=== PATIENT | female | born 1990 | race Caucasian/White ===

== ENCOUNTER 2018-03-19 09:16 | Emergency (ER) | payer OTHER, BC ==
[2018-03-19] MEDS ORDERED: HYDROmorphone 1 MG/ML Syringe IVPUSH ONE (09:30)
[2018-03-19] MEDS ORDERED: Ondansetron 4 MG/2 ML SDV IVPUSH ONE (09:31)
[2018-03-19] MEDS ORDERED: Sodium Chloride 0.9% 500 ML IV ONE (09:34)
[2018-03-19] MEDS ORDERED: Iopamidol 612 MG/ML 150 ML Bottle IVPUSH ONE (09:36)
[2018-03-19] MEDS ORDERED: Sodium Chloride 0.9% 10 ML Syringe FLUSH PRN (09:36)
[2018-03-19] MEDS ORDERED: Sodium Chloride 0.9% 100 ML IV SCH (09:45)
[2018-03-19] MEDS: Sodium Chloride 0.9% 10 ML Syringe FLUSH PRN ×2 (09:54→10:35)
--- NOTE | 2018-03-19 10:35 | CR ---
Chest: Portable view of the chest was obtained. Comparison: Prior chest x-ray of 01/28/[address] of 01/29/18. Heart size and mediastinum are normal. Lungs are clear. Bony structures appear grossly intact. Impression: 1. Nothing acute is seen on portable chest x-ray. Diagnostic code #1
--- NOTE | 2018-03-19 11:07 | CT ---
CT cervical spine Technique: Multiple axial sections were obtained from above C1 inferiorly to the top of T2. Reconstructed sagittal and coronal images were reviewed. Comparison: No prior cervical spine imaging. Findings: Incomplete arch of C1 is seen which is a normal variant. Disc space narrowing is noted at C2-C3 which is developmental. Other disc spaces and vertebral body heights are maintained. No fracture is seen. No bony central or bony neural foraminal stenosis is seen. No abnormal subluxation is seen. Impression: 1. Incidental developmental findings as noted above. 2. Nothing acute is seen on CT study of the cervical spine. Diagnostic code #2
--- NOTE | 2018-03-19 11:07 | CT ---
Head CT Technique: Multiple axial sections through the brain were obtained. Intravenous contrast was not utilized. Comparison: Prior head CT study of 01/15/18. Findings: Ventricles along with basal cisterns and sulci over the convexities are within normal limits for the patient's age. No abnormal parenchymal densities are seen. No evidence of intracranial hemorrhage. No midline shift or mass effect is seen. Visualized sinuses are clear. No acute calvarial abnormality is identified. Impression: 1. Nothing acute is appreciated on noncontrast head CT study. No significant change is seen from previous head CT exam. Diagnostic code #1
--- NOTE | 2018-03-19 11:34 | CT ---
CT chest Technique: Multiple axial sections were obtained from above the lung apices inferiorly through the lung bases. Intravenous contrast was utilized. Comparison: Prior chest CT performed as a pulmonary angiogram dated 01/29/18. Findings: Opacified great vessels are felt to be within normal limits. Pulsation artifact is noted within the ascending aorta. No pericardial thickening is seen. No mediastinal mass or adenopathy is noted. Lungs are clear. No pulmonary contusion is seen. No pleural effusions or pneumothorax is seen. Bone window settings were reviewed which show no discrete acute osseous abnormality. Impression: 1. Nothing acute is seen on CT study of the chest. Diagnostic code #1 CT abdomen and pelvis Technique: Multiple axial sections were obtained from above the dome of the diaphragm inferiorly through the pubic symphysis. Intravenous contrast was utilized. No oral contrast has been given. Comparison: Upper abdomen is compared to previous CT chest of 01/29/18. Findings: Cyst is identified within the right lobe of the liver measuring 2.4 cm in size which is felt to be stable from previous exam. Liver is otherwise unremarkable. Spleen appears within normal limits. Adrenal glands appear unremarkable. Kidneys show symmetric contrast enhancement without hydronephrosis or mass. Pancreas is within normal limits. Aorta shows no aneurysm. No retroperitoneal adenopathy is seen. Small physiologic cyst is seen within the left ovary. No pelvic mass or adenopathy is seen. No free fluid or inflammatory change is seen. Bone window settings were reviewed which show no acute osseous abnormality. Impression: 1. Nothing acute is appreciated on CT study of the abdomen and pelvis. 2. Incidental liver cyst is noted. Diagnostic code #2
[2018-03-19] MEDS ORDERED: Ketorolac 30 MG/ML SDV IVPUSH SCH (12:00)
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
--- NOTE | 2018-03-19 12:51 | CR ---
Right wrist: Four views of the right wrist were obtained. Comparison: No prior wrist exam. No fracture, dislocation or other bony abnormality is seen. Impression: 1. No abnormality is identified on right wrist exam. Diagnostic code #1
== END 2018-03-19 12:51 | disposition home or self-care (01) ==
LOC: JD.ED 09:16
DX: S06.0X0A Concussion without loss of consciousness, initial encounter (principal); S00.03XA Contusion of scalp, initial encounter; F41.9 Anxiety disorder, unspecified; Z87.891 Personal history of nicotine dependence; Z79.899 Other long term (current) drug therapy; Z88.1 Allergy status to other antibiotic agents; Z88.0 Allergy status to penicillin; Z91.09 Other allergy status, other than to drugs and biological substances; V49.9XXA Car occupant (driver) (passenger) injured in unspecified traffic accident, initial encounter; Y92.411 Interstate highway as the place of occurrence of the external cause
CPT/HCPCS: 36415; 70450; 71045; 71260; 72125; 73110; 74177; 80053; 84703; 85025; 96361; 96374; 96375; 99285; J1170; J1885; J2405; J7040; Q9967

== ENCOUNTER 2018-04-03 12:56 | Emergency (ER) | payer BC, OTHER ==
[2018-04-03] MEDS ORDERED: Sodium Chloride 0.9% 10 ML Syringe FLUSH PRN ×2 (13:38→14:20)
[2018-04-03] MEDS ORDERED: HYDROmorphone 1 MG/ML Syringe IVPUSH ONE ×2 (13:41→14:41)
[2018-04-03] MEDS ORDERED: Ondansetron 4 MG/2 ML SDV IVPUSH ONE (13:41)
[2018-04-03] MEDS ORDERED: Sodium Chloride 0.9% 1,000 ML IV SCH (13:45)
[2018-04-03] MEDS ORDERED: Iopamidol 612 MG/ML 100 ML Bottle IVPUSH ONE (14:20)
--- NOTE | 2018-04-03 15:34 | CT ---
CT abdomen and pelvis Technique: Multiple axial sections were obtained from above the dome of the diaphragm inferiorly through the pubic symphysis. Intravenous and oral contrast was utilized. Delayed images were obtained through the bladder. Comparison: Prior CT abdomen and pelvis exam of 03/19/18. Findings: Small portion of the visualized lung bases shows nothing acute. Low-density finding is noted within the posterior right lobe of the liver which is felt compatible with a cyst measuring approximately 2.6 cm. This is felt to be similar to recent CT exam. Liver is otherwise unremarkable. Spleen appears within normal limits. Adrenal glands show no nodule. Kidneys show symmetric contrast enhancement without hydronephrosis or mass. Gallbladder contains no calcified gallstones. Pancreas is within normal limits. Aorta shows no aneurysm. No retroperitoneal adenopathy or mesenteric abnormalities are noted. No colonic diverticuli are seen. Appendix is seen which is normal in size. No free fluid or inflammatory change is appreciated. Bone window settings were reviewed which appear within normal limits for the patient's age. Delayed images shows contrast within the distal ureters and within the bladder. Impression: 1. Stable liver cyst. 2. CT study of the abdomen and pelvis is otherwise unremarkable. Nothing acute is appreciated. Diagnostic code #2
--- NOTE | 2018-04-03 15:58 | EDM.PDOC ---
ED HPI GENERAL MEDICAL PROBLEM - General Chief Complaint: Gastrointestinal Problem Stated Complaint: ABD PAIN AND DIARRHEA Time Seen by Provider: 04/03/18 13:15 Source of Information: Reports: Patient History Limitations: Reports: No Limitations - History of Present Illness INITIAL COMMENTS - FREE TEXT/NARRATIVE: The patient presents with left lower abdominal pain, nausea and diarrhea. The patient says about 6 days ago she started her period. She had bleeding for 4 days and then stopped. This usually lasts longer. About the same time she developed diarrhea and abdominal pain. She has nausea but no vomiting. She has no dysuria. She does not think she is . She has a history of endometriosis. She still has her gallbladder and appendix. Onset: Gradual Duration: Day(s): (6) Location: Reports: Abdomen Quality: Reports: Burning Severity: Severe Improves with: Reports: None Worsens with: Reports: None Associated Symptoms: Reports: Nausea/Vomiting. 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 Left Lower Abdominal Pain Score (Numeric/FACES): 8 - Related Data Allergies Allergy/AdvReac Type Severity Reaction Status Date / Time adhesive Allergy Hives Verified 04/03/18 13:08 clarithromycin Allergy Hives Verified 04/03/18 13:08 Penicillins Allergy Airway Verified 04/03/18 13:08 Tightness Home Meds: Home Meds Topiramate 50 mg PO DAILY 10/20/17 [History] Albuterol Sulfate [Proair Hfa] 1 puff INH Q4HR PRN 03/19/18 [History] Apixaban [Eliquis] 2.5 mg PO BID 03/19/18 [History] Ergocalciferol (Vitamin D2) [Vitamin D2] 1 tab PO WEEKLY 03/19/18 [History] FLUoxetine HCl [Prozac] 80 mg PO DAILY 03/19/18 [History] LORazepam [Ativan] 0.5 mg PO TID PRN 03/19/18 [History] Maxalt 03/19/18 [History] Hydrocodone/Acetaminophen [Hydrocodon-Acetaminophen 5-325] 1 - 2 each PO Q6HR PRN #20 tablet 04/03/18 [Rx] Ondansetron [Zofran ODT] 4 mg PO Q6H PRN #20 tab.dis 04/03/18 [Rx] Orphenadrine [Norflex] 100 mg PO DAILY 04/03/18 [History] Past Medical History Cardiovascular History: Reports: Blood Clots/VTE/DVT Other Cardiovascular History: DVT, right heart damage Respiratory History: Reports: PE Other Respiratory History: PE with bilateral saddle bags 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: Endometriosis, Polycystic Ovaries Neurological History: Reports: Migraines Psychiatric History: Reports: Anxiety Endocrine/Metabolic History: Reports: Obesity/BMI 30+ Hematologic History: Reports: Anticoagulation Therapy - Past Surgical History HEENT Surgical History: Reports: Oral Surgery Cardiovascular Surgical History: Reports: Other (See Below), Vascular Surgery Other Cardiovascular Surgeries/Procedures: IVC filter in groin taken out friday03/13/18 Musculoskeletal Surgical History: Reports: Other (See Below) Social & Family History - Tobacco Use Smoking Status *Q: Former Smoker Used Tobacco, but Quit: Yes Month/Year Tobacco Last Used: 2017 Second Hand Smoke Exposure: No - Caffeine Use Caffeine Use: Reports: Coffee - Recreational Drug Use Recreational Drug Use: No - Living Situation & Occupation Living situation: Reports: , with Significant Other (Boyfriend + his son ) 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 Denies: Vomiting : Reports: No Symptoms Musculoskeletal: Reports: No Symptoms ED EXAM, GI/ABD - Physical Exam Exam: See Below Exam Limited By: No Limitations General Appearance: Alert, No Apparent Distress Ears: Normal External Exam Nose: Normal Inspection Head: Atraumatic, Normocephalic Neck: Normal Inspection Respiratory/Chest: No Respiratory Distress, Lungs Clear, Normal Breath Sounds Cardiovascular: Regular Rate, Rhythm, No Edema, No Murmur GI/Abdominal Exam: Soft, No Organomegaly, No Mass, Tender (Moderate pain upon palpation to the left lower abdomen) Course - Vital Signs Last Recorded V/S: Last Vital Signs Temp 97.1 F 04/03/18 13:03 Pulse 76 04/03/18 13:03 Resp 14 04/03/18 13:03 BP 140/104 H 04/03/18 13:03 Pulse Ox 99 04/03/18 13:03 - Orders/Labs/Meds Orders: Active Orders 24 hr Category Date Time Status Cardiac Monitoring [RC] . DIRECTED Care 04/03/18 13:38 Active Peripheral IV Care [RC] . DIRECTED Care 04/03/18 13:39 Active Sodium Chloride 0.9% [Normal Saline] 1,000 ml Med 04/03/18 13:45 Active IV .BOLUS Sodium Chloride 0.9% [Saline Flush] Med 04/03/18 13:38 Active 10 ml FLUSH ASDIRECTED PRN Sodium Chloride 0.9% [Saline Flush] Med 04/03/18 14:20 Active 10 ml FLUSH ONETIME PRN Peripheral IV Insertion Adult [OM.PC] Stat Oth 04/03/18 13:38 Ordered Medication Orders Sodium Chloride (Normal Saline) 1,000 mls @ 1,000 mls/hr IV .BOLUS SERA Last Admin: 04/03/18 13:52 Dose: 1,000 mls/hr Sodium Chloride (Saline Flush) 10 ml FLUSH ASDIRECTED PRN PRN Reason: Keep Vein Open Last Admin: 04/03/18 13:52 Dose: 10 ml Sodium Chloride (Saline Flush) 10 ml FLUSH ONETIME PRN PRN Reason: IV FLUSH Last Admin: 04/03/18 15:05 Dose: 10 ml Labs: Laboratory Tests 04/03/18 04/03/18 04/03/18 Range/Units 13:50 13:50 13:50 WBC 7.19 (3.98-10.04) K/mm3 RBC 4.62 (3.98-5.22) M/mm3 Hgb 14.1 (11.2-15.7) gm/L Hct 42.1 (34.1-44.9) % MCV 91.1 (79.4-94.8) fl MCH 30.5 (25.6-32.2) pg MCHC 33.5 (32.2-35.5) g/dl RDW Std Deviation 40.8 (36.4-46.3) fL Plt Count 284 (182-369) K/mm3 MPV 10.4 (9.4-12.3) fl Neut % (Auto) 58.1 (34.0-71.1) % Lymph % (Auto) 31.0 (19.3-51.7) % Hubbard % (Auto) 8.2 (4.7-12.5) % Eos % (Auto) 2.2 (0.7-5.8) Baso % (Auto) 0.4 (0.1-1.2) % Neut # (Auto) 4.17 (1.56-6.13) K/mm3 Lymph # (Auto) 2.23 (1.18-3.74) K/mm3 Hubbard # (Auto) 0.59 H (0.24-0.36) K/mm3 Eos # (Auto) 0.16 (0.04-0.36) K/mm3 Baso # (Auto) 0.03 (0.01-0.08) K/mm3 Sodium 140 (136-145) mEq/L Potassium 4.0 (3.5-5.1) mEq/L Chloride 105 (98-107) mEq/L Carbon Dioxide 27 (21-32) mEq/L Anion Gap 12.0 (5-15) BUN 12 (7-18) mg/dL Creatinine 0.8 (0.55-1.02) mg/dL Est Cr Clr Drug Dosing 91.21 mL/min Estimated GFR (MDRD) > 60 (>60) mL/min BUN/Creatinine Ratio 15.0 (14-18) Glucose 83 (74-106) mg/dL Calcium 8.7 (8.5-10.1) mg/dL Total Bilirubin 0.4 (0.2-1.0) mg/dL AST 11 L (15-37) U/L ALT 31 (14-59) U/L Alkaline Phosphatase 90 (46-116) U/L C-Reactive Protein 0.8 (<1.0) mg/dL Total Protein 7.0 (6.4-8.2) g/dl Albumin 3.7 (3.4-5.0) g/dl Globulin 3.3 gm/dL Albumin/Globulin Ratio 1.1 (1-2) Lipase 187 (73-393) U/L HCG, Qual Negative (NEGATIVE) Urine Color (Yellow) Urine Appearance (Clear) Urine pH (5.0-8.0) Ur Specific [place] (1.005-1.030) Urine Protein (Negative) Urine Glucose (UA) (Negative) Urine Ketones (Negative) Urine Occult Blood (Negative) Urine Nitrite (Negative) Urine Bilirubin (Negative) Urine Urobilinogen (0.2-1.0) Ur Leukocyte Esterase (Negative) Urine RBC (0-5) /hpf Urine WBC (0-5) /hpf Ur Epithelial Cells (0-5) /hpf Urine Bacteria (FEW) /hpf Urine Mucus (FEW) /hpf 04/03/18 Range/Units 14:46 WBC (3.98-10.04) K/mm3 RBC (3.98-5.22) M/mm3 Hgb (11.2-15.7) gm/L Hct (34.1-44.9) % MCV (79.4-94.8) fl MCH (25.6-32.2) pg MCHC (32.2-35.5) g/dl RDW Std Deviation (36.4-46.3) fL Plt Count (182-369) K/mm3 MPV (9.4-12.3) fl Neut % (Auto) (34.0-71.1) % Lymph % (Auto) (19.3-51.7) % Hubbard % (Auto) (4.7-12.5) % Eos % (Auto) (0.7-5.8) Baso % (Auto) (0.1-1.2) % Neut # (Auto) (1.56-6.13) K/mm3 Lymph # (Auto) (1.18-3.74) K/mm3 Hubbard # (Auto) (0.24-0.36) K/mm3 Eos # (Auto) (0.04-0.36) K/mm3 Baso # (Auto) (0.01-0.08) K/mm3 Sodium (136-145) mEq/L Potassium (3.5-5.1) mEq/L Chloride (98-107) mEq/L Carbon Dioxide (21-32) mEq/L Anion Gap (5-15) BUN (7-18) mg/dL Creatinine (0.55-1.02) mg/dL Est Cr Clr Drug Dosing mL/min Estimated GFR (MDRD) (>60) mL/min BUN/Creatinine Ratio (14-18) Glucose (74-106) mg/dL Calcium (8.5-10.1) mg/dL Total Bilirubin (0.2-1.0) mg/dL AST (15-37) U/L ALT (14-59) U/L Alkaline Phosphatase (46-116) U/L C-Reactive Protein (<1.0) mg/dL Total Protein (6.4-8.2) g/dl Albumin (3.4-5.0) g/dl Globulin gm/dL Albumin/Globulin Ratio (1-2) Lipase (73-393) U/L HCG, Qual (NEGATIVE) Urine Color Light yellow (Yellow) Urine Appearance Clear (Clear) Urine pH 7.0 (5.0-8.0) Ur Specific [place] 1.010 (1.005-1.030) Urine Protein Negative (Negative) Urine Glucose (UA) Negative (Negative) Urine Ketones Negative (Negative) Urine Occult Blood Negative (Negative) Urine Nitrite Negative (Negative) Urine Bilirubin Negative (Negative) Urine Urobilinogen 0.2 (0.2-1.0) Ur Leukocyte Esterase Negative (Negative) Urine RBC 0-5 (0-5) /hpf Urine WBC 0-5 (0-5) /hpf Ur Epithelial Cells 0-5 (0-5) /hpf Urine Bacteria Occasional (FEW) /hpf Urine Mucus Not seen (FEW) /hpf Meds: Medications Generic Name Dose Route Start Last Admin Trade Name Freq PRN Reason Stop Dose Admin Sodium Chloride 1,000 mls @ 1,000 mls/hr 04/03/18 13:45 04/03/18 13:52 Normal Saline IV 1,000 mls/hr .BOLUS SERA Administration Sodium Chloride 10 ml 04/03/18 13:38 04/03/18 13:52 Saline Flush FLUSH 10 ml ASDIRECTED PRN Administration Keep Vein Open Sodium Chloride 10 ml 04/03/18 14:20 04/03/18 15:05 Saline Flush FLUSH 10 ml ONETIME PRN Administration IV FLUSH Discontinued Medications Generic Name Dose Route Start Last Admin Trade Name Freq PRN Reason Stop Dose Admin Hydromorphone HCl 1 mg 04/03/18 13:41 04/03/18 13:52 Dilaudid IVPUSH 04/03/18 13:42 1 mg ONETIME ONE Administration Hydromorphone HCl 1 mg 04/03/18 14:41 04/03/18 14:50 Dilaudid IVPUSH 04/03/18 14:42 1 mg ONETIME ONE Administration Iopamidol 100 ml 04/03/18 14:20 04/03/18 15:05 Isovue-300 (61%) IVPUSH 04/03/18 14:21 100 ml ONETIME ONE Administration Ondansetron HCl 4 mg 04/03/18 13:41 04/03/18 13:52 Zofran IVPUSH 04/03/18 13:42 4 mg ONETIME ONE Administration - Re-Assessments/Exams Free Text/Narrative Re-Assessment/Exam: 04/03/18 15:57 I ordered an IV NS 1L bolus, zofran 4mg IV, dilaudid 1mg IV, labs, UA and a CT of her abdomen and pelvis. Her CBC and CMP look good. Her UA looks good. Her HCG is negative. Her CT shows stable liver cyst. CT study of the abdomen and pelvis is otherwise unremarkable. She had more pain so I ordered some more dilaudid 1mg IV. 04/03/18 16:03 She still has pain. I will get her some fentanyl. This could be endometriosis but I cannot explain why she has diarrhea with it. I will give her something for pain and nausea and have her follow up with Dr Hernandez. Departure - Departure Time of Disposition: 16:10 Disposition: Home, Self-Care 01 Condition: Good Clinical Impression: Abdominal pain, Diarrhea - Discharge Information *PRESCRIPTION DRUG MONITORING PROGRAM REVIEWED*: No *COPY OF PRESCRIPTION DRUG MONITORING REPORT IN PATIENT CALEB: No Prescriptions: Hydrocodone/Acetaminophen [Hydrocodon-Acetaminophen 5-325] 1 - 2 each PO Q6HR PRN #20 tablet PRN Reason: Pain Ondansetron [Zofran ODT] 4 mg PO Q6H PRN #20 tab.dis PRN Reason: Nausea\vomiting Referrals: Anahi Canales PA-C [Primary Care Provider] - Agusto Hernandez MD [Physician] - 1 Week Forms: ED Department Discharge Additional Instructions: Drink plenty of fluids. Take the zofran every 6 hours as needed for nausea and vomiting. Take the hydrocodone as needed for pain. Try some immodium for the diarrhea. Please return if you are worse. - My Orders Last 24 Hours: My Active Orders 04/03/18 13:38 Cardiac Monitoring [RC] . DIRECTED Sodium Chloride 0.9% [Saline Flush] 10 ml FLUSH ASDIRECTED PRN Peripheral IV Insertion Adult [OM.PC] Stat 04/03/18 13:39 Peripheral IV Care [RC] . DIRECTED 04/03/18 13:45 Sodium Chloride 0.9% [Normal Saline] 1,000 ml IV .BOLUS 04/03/18 14:20 Sodium Chloride 0.9% [Saline Flush] 10 ml FLUSH ONETIME PRN - Assessment/Plan Last 24 Hours: My Active Orders 04/03/18 13:38 Cardiac Monitoring [RC] . DIRECTED Sodium Chloride 0.9% [Saline Flush] 10 ml FLUSH ASDIRECTED PRN Peripheral IV Insertion Adult [OM.PC] Stat 04/03/18 13:39 Peripheral IV Care [RC] . DIRECTED 04/03/18 13:45 Sodium Chloride 0.9% [Normal Saline] 1,000 ml IV .BOLUS 04/03/18 14:20 Sodium Chloride 0.9% [Saline Flush] 10 ml FLUSH ONETIME PRN
[2018-04-03] MEDS ORDERED: fentaNYL 100 MCG/2 ML SDV IVPUSH ONE (16:04)
== END 2018-04-03 16:25 | disposition home or self-care (01) ==
LOC: JD.ED 12:56
DX: R19.7 Diarrhea, unspecified (principal); R10.32 Left lower quadrant pain; F41.9 Anxiety disorder, unspecified; Z88.8 Allergy status to other drugs, medicaments and biological substances; Z88.1 Allergy status to other antibiotic agents; Z88.0 Allergy status to penicillin; Z79.899 Other long term (current) drug therapy; Z87.891 Personal history of nicotine dependence
CPT/HCPCS: 36415; 74177; 80053; 81001; 83690; 84703; 85025; 86140; 96361; 96374; 96375; 96376; 99284; J1170; J2405; J3010; J7040; Q9967

== ENCOUNTER 2018-05-07 17:48 | Emergency (ER) | payer BC, OTHER ==
[2018-05-07] MEDS ORDERED: Metoclopramide 10 MG/2 ML SDV IVPUSH ONE (18:43)
[2018-05-07] MEDS ORDERED: diphenhydrAMINE 50 MG/ML SDV IVPUSH ONE (18:43)
[2018-05-07] MEDS ORDERED: Sodium Chloride 0.9% 10 ML Syringe FLUSH PRN (18:43)
[2018-05-07] MEDS ORDERED: Ketorolac 30 MG/ML SDV IVPUSH ONE (18:43)
[2018-05-07] MEDS ORDERED: Sodium Chloride 0.9% 1,000 ML IV SCH (18:45)
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
--- NOTE | 2018-05-07 20:14 | US ---
Right lower extremity deep venous ultrasound: Duplex and color flow imaging was obtained of the left common femoral, proximal greater saphenous, superficial femoral, popliteal, posterior tibial and peroneal veins. Right common femoral vein was also evaluated. Findings: Peroneal vein not optimally visualized. Other veins show normal phasic flow, augmentation and compression. Impression: 1. Poorly seen peroneal vein. Other veins show no evidence of deep venous thrombosis. Diagnostic code #2
== END 2018-05-07 20:38 | disposition home or self-care (01) ==
LOC: JD.ED 17:48
DX: G43.909 Migraine, unspecified, not intractable, without status migrainosus (principal); M79.662 Pain in left lower leg; F41.9 Anxiety disorder, unspecified; Z88.0 Allergy status to penicillin; Z87.891 Personal history of nicotine dependence; Z79.01 Long term (current) use of anticoagulants; Z79.899 Other long term (current) drug therapy
CPT/HCPCS: 36415; 80053; 84703; 85007; 85027; 85379; 93971; 96361; 96374; 96375; 99284; J1200; J1885; J2765; J7040

== ENCOUNTER 2018-05-26 15:22 | Emergency (ER) | payer SELFPAY ==
--- NOTE | 2018-05-26 17:07 | EDM.PDOC ---
ED HPI GENERAL MEDICAL PROBLEM - General Chief Complaint: Respiratory Problem Stated Complaint: SOB/CHEST TIGHT/HX OF BLOOD CLOT Time Seen by Provider: 05/26/18 16:09 Source of Information: Reports: Patient History Limitations: Reports: No Limitations - History of Present Illness INITIAL COMMENTS - FREE TEXT/NARRATIVE: 28 yo F comes in today for SOB and pleuritic chest pain that feels like someone is "sitting on my chest". 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 She also c/o dizziness, nausea w / migraine yesterday, chest tightness, dyspnea with exertion, near syncope. She denies F/C, abdominal pain, N/V/D, calf pain, hemoptysis, or any other symptoms at this time. She was on Eliquis 2 months ago, but was d/c'd after clotting disorders were ruled out- her provider suspected PE was d/t estrogen from control and recent ankle surgery. She is no longer on control. She is unsure if she is currently . No other risk factors for PE identified at this time. She denies any sick symptoms, but did mention her son recently had tonsillitis. Left Lower Thoracic Pain Score (Numeric/FACES): 7 - Related Data Allergies Allergy/AdvReac Type Severity Reaction Status Date / Time adhesive Allergy Hives Verified 05/26/18 15:32 clarithromycin Allergy Hives Verified 05/26/18 15:32 Penicillins Allergy Airway Verified 05/26/18 15:32 Tightness Home Meds: Home Meds Albuterol Sulfate [Proair Hfa] 1 puff INH Q4HR PRN 03/19/18 [History] Ergocalciferol (Vitamin D2) [Vitamin D2] 1 tab PO WEEKLY 03/19/18 [History] FLUoxetine HCl [Prozac] 80 mg PO DAILY 03/19/18 [History] LORazepam [Ativan] 0.5 mg PO TID PRN 03/19/18 [History] Maxalt 1 tab PO ASDIRECTED PRN 03/19/18 [History] buPROPion [Wellbutrin] 1 tab PO BID 05/26/18 [History] Past Medical History Cardiovascular History: Reports: Blood Clots/VTE/DVT Other Cardiovascular History: DVT, right heart damage Respiratory History: Reports: PE Other Respiratory History: PE with bilateral saddle bags 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: Endometriosis, Polycystic Ovaries Neurological History: Reports: Migraines Psychiatric History: Reports: Anxiety Endocrine/Metabolic History: Reports: Obesity/BMI 30+ Hematologic History: Reports: Anticoagulation Therapy - Past Surgical History HEENT Surgical History: Reports: Oral Surgery Cardiovascular Surgical History: Reports: Other (See Below), Vascular Surgery Other Cardiovascular Surgeries/Procedures: IVC filter in groin taken out friday03/13/18 Musculoskeletal Surgical History: Reports: Other (See Below) Social & Family History - Family History Family Medical History: Noncontributory - Tobacco Use Smoking Status *Q: Former Smoker Used Tobacco, but Quit: Yes Month/Year Tobacco Last Used: last summer - Caffeine Use Caffeine Use: Reports: Coffee - Recreational Drug Use Recreational Drug Use: No - Living Situation & Occupation Living situation: Reports: , with Significant Other (Boyfriend + his son ) 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) ED ROS GENERAL - Review of Systems Review Of Systems: See Below Constitutional: Reports: No Symptoms. Denies: Fever, Chills HEENT: Reports: Other (VILLARREAL) Respiratory: Reports: Shortness of Breath, Pleuritic Chest Pain. Denies: Cough , Sputum, Hemoptysis Cardiovascular: Reports: Dyspnea on Exertion, Lightheadedness. Denies: Chest Pain, Edema, Palpitations, Syncope Endocrine: Reports: No Symptoms GI/Abdominal: Reports: Nausea. Denies: Abdominal Pain, Diarrhea, Vomiting : Reports: No Symptoms Musculoskeletal: Reports: No Symptoms Skin: Reports: No Symptoms Neurological: Reports: Dizziness, Headache Psychiatric: Reports: No Symptoms Hematologic/Lymphatic: Reports: No Symptoms Immunologic: Reports: No Symptoms ED EXAM, GENERAL - Physical Exam Exam: See Below Exam Limited By: No Limitations General Appearance: Alert, WD/WN Eye Exam: Bilateral Eye: EOMI, PERRL Nose: Normal Inspection, Normal Mucosa, No Blood Throat/Mouth: Normal Inspection, Normal Lips, Normal Teeth, Normal Gums, Normal Oropharynx (some dryness), Normal Voice, No Airway Compromise Head: Atraumatic, Normocephalic Neck: Normal Inspection, Supple, Non-Tender, Full Range of Motion Respiratory/Chest: Lungs Clear, Normal Breath Sounds, Chest Non-Tender, Respiratory Distress (tachypneic), Decreased Breath Sounds (difficult for her to take deep breaths) Cardiovascular: Tachycardia Peripheral Pulses: 3+: Radial (L), Radial (R), Posterior Tibial (L), Posterior Tibial (R), Dorsalis Pedis (L), Dorsalis Pedis (R) GI/Abdominal: Normal Bowel Sounds, Soft, Non-Tender, No Organomegaly, No Distention, No Abnormal Bruit, No Mass Back Exam: Normal Inspection Extremities: Normal Inspection, Normal Range of Motion, Non-Tender, No Pedal Edema, Normal Capillary Refill. No: Arm Pain, Zahida's Sign, Leg Pain, Increased Warmth, Redness Neurological: Alert, Oriented, CN II-XII Intact, Normal Cognition, Normal Gait, Normal Reflexes, No Motor/Sensory Deficits Skin Exam: Warm, Dry, Intact, Normal Color, No Rash Course - Vital Signs Last Recorded V/S: Last Vital Signs Temp 98.3 F 05/26/18 15:28 Pulse 106 H 05/26/18 15:28 Resp 18 05/26/18 15:28 BP 130/89 05/26/18 15:28 Pulse Ox 98 05/26/18 15:28 - Orders/Labs/Meds Orders: Active Orders 24 hr Category Date Time Status EKG Documentation Completion [RC] ASDIRECTED Care 05/26/18 16:11 Active Orthostatic Vital Signs [RC] ASDIRECTED Care 05/26/18 19:03 Active Sodium Chloride 0.9% [Normal Saline] 1,000 ml Med 05/26/18 19:15 Active IV ASDIRECTED Sodium Chloride 0.9% [Normal Saline] 100 ml Med 05/26/18 17:30 Active IV ASDIRECTED Sodium Chloride 0.9% [Saline Flush] Med 05/26/18 17:24 Active 10 ml FLUSH ONETIME PRN EKG 12 Lead [EK] Stat Ther 05/26/18 16:10 Ordered Medication Orders Sodium Chloride (Normal Saline) 100 mls @ 80 mls/hr IV ASDIRECTED SERA Sodium Chloride (Normal Saline) 1,000 mls @ 999 mls/hr IV ASDIRECTED SERA Last Admin: 05/26/18 19:52 Dose: 999 mls/hr Sodium Chloride (Saline Flush) 10 ml FLUSH ONETIME PRN PRN Reason: KEEP VEIN OPEN Labs: Laboratory Tests 05/26/18 05/26/18 05/26/18 Range/Units 16:32 16:32 16:32 WBC 6.44 (3.98-10.04) K/mm3 RBC 4.73 (3.98-5.22) M/mm3 Hgb 14.7 (11.2-15.7) gm/L Hct 42.6 (34.1-44.9) % MCV 90.1 (79.4-94.8) fl MCH 31.1 (25.6-32.2) pg MCHC 34.5 (32.2-35.5) g/dl RDW Std Deviation 42.3 (36.4-46.3) fL Plt Count 239 (182-369) K/mm3 MPV 10.2 (9.4-12.3) fl Neut % (Auto) 63.2 (34.0-71.1) % Lymph % (Auto) 24.5 (19.3-51.7) % Wilcox % (Auto) 10.7 (4.7-12.5) % Eos % (Auto) 1.2 (0.7-5.8) Baso % (Auto) 0.2 (0.1-1.2) % Neut # (Auto) 4.07 (1.56-6.13) K/mm3 Lymph # (Auto) 1.58 (1.18-3.74) K/mm3 Wilcox # (Auto) 0.69 H (0.24-0.36) K/mm3 Eos # (Auto) 0.08 (0.04-0.36) K/mm3 Baso # (Auto) 0.01 (0.01-0.08) K/mm3 PT (9.5-12.1) SECONDS INR D-Dimer, Quantitative 1.32 H (0.19-0.50) mg/L Sodium 141 (136-145) mEq/L Potassium 3.6 (3.5-5.1) mEq/L Chloride 108 H (98-107) mEq/L Carbon Dioxide 20 L (21-32) mEq/L Anion Gap 16.6 H (5-15) BUN 8 (7-18) mg/dL Creatinine 1.0 (0.55-1.02) mg/dL Est Cr Clr Drug Dosing 72.32 mL/min Estimated GFR (MDRD) > 60 (>60) mL/min BUN/Creatinine Ratio 8.0 L (14-18) Glucose 107 H (74-106) mg/dL Calcium 9.0 (8.5-10.1) mg/dL Total Bilirubin 0.5 (0.2-1.0) mg/dL AST 11 L (15-37) U/L ALT 29 (14-59) U/L Alkaline Phosphatase 118 H (46-116) U/L Total Protein 7.3 (6.4-8.2) g/dl Albumin 3.7 (3.4-5.0) g/dl Globulin 3.6 gm/dL Albumin/Globulin Ratio 1.0 (1-2) HCG, Quant mIU/mL 05/26/18 05/26/18 Range/Units 16:32 16:32 WBC (3.98-10.04) K/mm3 RBC (3.98-5.22) M/mm3 Hgb (11.2-15.7) gm/L Hct (34.1-44.9) % MCV (79.4-94.8) fl MCH (25.6-32.2) pg MCHC (32.2-35.5) g/dl RDW Std Deviation (36.4-46.3) fL Plt Count (182-369) K/mm3 MPV (9.4-12.3) fl Neut % (Auto) (34.0-71.1) % Lymph % (Auto) (19.3-51.7) % Wilcox % (Auto) (4.7-12.5) % Eos % (Auto) (0.7-5.8) Baso % (Auto) (0.1-1.2) % Neut # (Auto) (1.56-6.13) K/mm3 Lymph # (Auto) (1.18-3.74) K/mm3 Wilcox # (Auto) (0.24-0.36) K/mm3 Eos # (Auto) (0.04-0.36) K/mm3 Baso # (Auto) (0.01-0.08) K/mm3 PT 10.9 (9.5-12.1) SECONDS INR 1.00 D-Dimer, Quantitative (0.19-0.50) mg/L Sodium (136-145) mEq/L Potassium (3.5-5.1) mEq/L Chloride (98-107) mEq/L Carbon Dioxide (21-32) mEq/L Anion Gap (5-15) BUN (7-18) mg/dL Creatinine (0.55-1.02) mg/dL Est Cr Clr Drug Dosing mL/min Estimated GFR (MDRD) (>60) mL/min BUN/Creatinine Ratio (14-18) Glucose (74-106) mg/dL Calcium (8.5-10.1) mg/dL Total Bilirubin (0.2-1.0) mg/dL AST (15-37) U/L ALT (14-59) U/L Alkaline Phosphatase (46-116) U/L Total Protein (6.4-8.2) g/dl Albumin (3.4-5.0) g/dl Globulin gm/dL Albumin/Globulin Ratio (1-2) HCG, Quant < 1.0 mIU/mL Meds: Medications Generic Name Dose Route Start Last Admin Trade Name Freq PRN Reason Stop Dose Admin Sodium Chloride 100 mls @ 80 mls/hr 05/26/18 17:30 Normal Saline IV ASDIRECTED SERA Sodium Chloride 1,000 mls @ 999 mls/hr 05/26/18 19:15 05/26/18 19:52 Normal Saline IV 999 mls/hr ASDIRECTED SERA Administration Sodium Chloride 10 ml 05/26/18 17:24 Saline Flush FLUSH ONETIME PRN KEEP VEIN OPEN Discontinued Medications Generic Name Dose Route Start Last Admin Trade Name Freq PRN Reason Stop Dose Admin Acetaminophen 650 mg 05/26/18 18:19 05/26/18 18:23 Tylenol PO 05/26/18 18:20 650 mg NOW ONE Administration Iopamidol 100 ml 05/26/18 17:24 05/26/18 18:22 Isovue-370 (76%) IVPUSH 05/26/18 17:25 100 ml ONETIME ONE Administration Ondansetron HCl 4 mg 05/26/18 18:18 05/26/18 18:23 Zofran Odt PO 05/26/18 18:19 4 mg ONETIME ONE Administration - Re-Assessments/Exams Free Text/Narrative Re-Assessment/Exam: 05/26/18 16:32 I have ordered CBC, CMP, HCG, EKG, CTA, PT/INR, D-dimer 05/26/18 17:06 CBC, PT/INR WNL D-Dimer slightly elevated at 1.32 EKG reviewed by myself and Dr. Marcano- WNL. CMP, HCG, CTA pending 05/26/18 18:30 CMP shows elevated Agap 16.6. HCG <1- negative. CTA pending. Will start NS IVF as her labs suggest she is dehydrated. 05/26/18 19:44 CTA shows no evidence of pulmonary embolism. Does suggest diffuse bronchiolitis vs. atelectasis d/t body habitus. Influenza pending 05/26/18 20:58 Influenza negative IVF are completed. Departure - Departure Time of Disposition: 21:00 Disposition: Home, Self-Care 01 Condition: Good Clinical Impression: Upper respiratory infection - Discharge Information *PRESCRIPTION DRUG MONITORING PROGRAM REVIEWED*: Not Applicable *COPY OF PRESCRIPTION DRUG MONITORING REPORT IN PATIENT CALEB: Not Applicable Instructions: Upper Respiratory Infection, Adult, [id number], Viral Respiratory Infection, [id number] Referrals: Anahi Canales PA-C [Primary Care Provider] - Forms: ED Department Discharge Additional Instructions: You were seen in the ED today for shortness of breath and chest tightness. Due to your recent history of Pulmonary Embolism, we did a workup including CT angiogram of the chest, which was negative for pulmonary embolism, but did suggest bronchiolitis. This is likely caused by a viral upper respiratory infection. Your physical exam was not remarkable for DVT, so no doppler U/S was needed at this time. Your test was negative. Your influenza was negative. You were found to be dehydrated, so you were also given IV fluids while here. At this time, it is reasonable to send you home. Recommend rest, plenty of fluids and follow up with your primary care in the next few days. Please return to ED if new or worsening symptoms. - My Orders Last 24 Hours: My Active Orders 05/26/18 16:10 EKG 12 Lead [EK] Stat 05/26/18 16:11 EKG Documentation Completion [RC] ASDIRECTED 05/26/18 17:24 Sodium Chloride 0.9% [Saline Flush] 10 ml FLUSH ONETIME PRN 05/26/18 17:30 Sodium Chloride 0.9% [Normal Saline] 100 ml IV ASDIRECTED 05/26/18 19:03 Orthostatic Vital Signs [RC] ASDIRECTED 05/26/18 19:15 Sodium Chloride 0.9% [Normal Saline] 1,000 ml IV ASDIRECTED - Assessment/Plan Last 24 Hours: My Active Orders 05/26/18 16:10 EKG 12 Lead [EK] Stat 05/26/18 16:11 EKG Documentation Completion [RC] ASDIRECTED 05/26/18 17:24 Sodium Chloride 0.9% [Saline Flush] 10 ml FLUSH ONETIME PRN 05/26/18 17:30 Sodium Chloride 0.9% [Normal Saline] 100 ml IV ASDIRECTED 05/26/18 19:03 Orthostatic Vital Signs [RC] ASDIRECTED 05/26/18 19:15 Sodium Chloride 0.9% [Normal Saline] 1,000 ml IV ASDIRECTED
[2018-05-26] MEDS ORDERED: Iopamidol 755 Mg/ML 100 ML Bottle IVPUSH ONE (17:24)
[2018-05-26] MEDS ORDERED: Sodium Chloride 0.9% 10 ML Syringe FLUSH PRN (17:24)
[2018-05-26] MEDS ORDERED: Sodium Chloride 0.9% 100 ML IV SCH (17:30)
[2018-05-26] MEDS ORDERED: Ondansetron 4 MG Tab.DIS PO ONE (18:18)
[2018-05-26] MEDS ORDERED: Acetaminophen 325 MG Tab PO ONE (18:19)
--- NOTE | 2018-05-26 18:33 | CT ---
CT chest Technique: Multiple axial sections through the chest were obtained. Intravenous contrast was utilized. Study has been performed as a pulmonary angiogram protocol. Findings: Pulmonary arteries are moderately well-opacified. No filling defects are seen to indicate pulmonary embolism. Aorta shows no aneurysm. Mediastinum and hilar regions show no adenopathy or mass. No axillary adenopathy is seen. No pericardial thickening is seen. Low-density lesion is identified within the posterior right lobe of the liver measuring approximately 2.9 cm which is compatible with a cyst. Other visualized upper abdominal structures appear within normal limits. Lungs show scattered ground glass appearance which most likely represents slight atelectasis due to patient body habitus although this may also represent bronchiolitis. Lungs otherwise are clear. No pleural effusions or pneumothorax is seen. Bone window settings were reviewed which shows no discrete osseous abnormality. Impression: 1. No findings of pulmonary embolism. 2. Slight groundglass appearance throughout both lungs which may represent atelectasis due to patient body habitus although diffuse bronchiolitis is also within the differential. 3. Incidental liver cyst. Diagnostic code #2
[2018-05-26] MEDS ORDERED: Sodium Chloride 0.9% 1,000 ML IV SCH (19:15)
== END 2018-05-26 21:20 | disposition home or self-care (01) ==
LOC: JD.ED 15:22
DX: J06.9 Acute upper respiratory infection, unspecified (principal); Z88.0 Allergy status to penicillin; Z88.1 Allergy status to other antibiotic agents; Z79.899 Other long term (current) drug therapy; Z87.891 Personal history of nicotine dependence
CPT/HCPCS: 36415; 71275; 80053; 84702; 85025; 85379; 85610; 87804; 93005; 96360; 99285; A9270; J7040; Q9967; 99283

== ENCOUNTER 2018-11-14 15:53 | Emergency (ER) | payer SELFPAY ==
[2018-11-14] MEDS ORDERED: Lidocaine 1% 10 ML MDV INJECT ONE (16:49)
[2018-11-14] MEDS ORDERED: HYDROmorphone 0.5 MG/0.5 ML Syringe IM ONE (16:50)
[2018-11-14] MEDS ORDERED: Ondansetron 4 MG Tab.DIS PO ONE (16:50)
--- NOTE | 2018-11-14 17:17 | EDM.PDOC ---
ED HPI GENERAL MEDICAL PROBLEM - General Chief Complaint: Skin Complaint Stated Complaint: ABSCESS Time Seen by Provider: 11/14/18 16:30 Source of Information: Reports: Patient, RN Notes Reviewed History Limitations: Reports: No Limitations - History of Present Illness INITIAL COMMENTS - FREE TEXT/NARRATIVE: Patient is a 28-year-old female who presents to the ED for evaluation of an abscess on her right upper thigh. Patient states she's had this cyst for about one month, but it is been growing and is becoming more painful. She states that she takes 800 mg of ibuprofen every 6-8 hours with not a lot of relief any longer. The patient notes she does have a history of hidradenitis suppurativa, and she states that the pain is really been bad the last week now. She notes she has had issues like this in the past where she's had them drained and been put on antibiotics. She states she has tried doxycycline but this made her sick , she has successfully taken clindamycin for this in the past. She does not note any fevers or chills specifically but states that she has been waking up hot and sweaty for the past week. Patient denies any chest pain, shortness of breath, nausea vomiting or diarrhea. Right Groin Pain Score (Numeric/FACES): 8 - Related Data Allergies Allergy/AdvReac Type Severity Reaction Status Date / Time adhesive Allergy Hives Verified 05/26/18 15:32 clarithromycin Allergy Hives Verified 05/26/18 15:32 Penicillins Allergy Airway Verified 05/26/18 15:32 Tightness Home Meds: Home Meds Albuterol Sulfate [Proair Hfa] 1 puff INH Q4HR PRN 03/19/18 [History] Ergocalciferol (Vitamin D2) [Vitamin D2] 1 tab PO WEEKLY 03/19/18 [History] FLUoxetine HCl [Prozac] 80 mg PO DAILY 03/19/18 [History] Rizatriptan Benzoate [Rizatriptan] 10 mg PO ASDIRECTED 11/14/18 [History] Past Medical History Cardiovascular History: Reports: Blood Clots/VTE/DVT Other Cardiovascular History: DVT, right heart damage Respiratory History: Reports: PE Other Respiratory History: PE with bilateral saddle bags 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: Endometriosis, Polycystic Ovaries Neurological History: Reports: Migraines Psychiatric History: Reports: Anxiety Endocrine/Metabolic History: Reports: Obesity/BMI 30+ Hematologic History: Reports: Anticoagulation Therapy - Past Surgical History HEENT Surgical History: Reports: Oral Surgery Cardiovascular Surgical History: Reports: Other (See Below), Vascular Surgery Other Cardiovascular Surgeries/Procedures: IVC filter in groin taken out friday03/13/18 Musculoskeletal Surgical History: Reports: Other (See Below) Social & Family History - Family History Family Medical History: Noncontributory - Tobacco Use Smoking Status *Q: Current Every Day Smoker Years of Tobacco use: 4 Packs/Tins Daily: 0.2 - Caffeine Use Caffeine Use: Reports: Coffee, Energy Drinks, Soda, Tea - Recreational Drug Use Recreational Drug Use: No - Living Situation & Occupation Living situation: Reports: , with Significant Other (Boyfriend + his son ) 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[employer]) ED ROS GENERAL - Review of Systems Review Of Systems: See Below Constitutional: Denies: Fever, Chills HEENT: Reports: No Symptoms Respiratory: Denies: Shortness of Breath Cardiovascular: Denies: Chest Pain Endocrine: Reports: No Symptoms GI/Abdominal: Denies: Abdominal Pain, Diarrhea, Nausea, Vomiting : Denies: Dysuria, Frequency, Urgency Musculoskeletal: Reports: No Symptoms Skin: Reports: Erythema (area of concern on proximal anterior R thigh) Neurological: Reports: No Symptoms Psychiatric: Reports: No Symptoms Hematologic/Lymphatic: Reports: No Symptoms Immunologic: Reports: No Symptoms ED EXAM, SKIN/RASH Exam: See Below Exam Limited By: No Limitations General Appearance: Alert, WD/WN, No Apparent Distress Eye Exam: Bilateral Eye: EOMI, Normal Inspection, PERRL Respiratory/Chest: No Respiratory Distress, Lungs Clear, Normal Breath Sounds, No Accessory Muscle Use, Chest Non-Tender Cardiovascular: Normal Peripheral Pulses, Regular Rate, Rhythm, No Murmur Peripheral Pulses: 3+: Radial (L), Radial (R) GI/Abdominal: Normal Bowel Sounds, Soft, Non-Tender, No Distention, No Mass Extremities: Normal Inspection (area of raised fluctuance with surrounding localized erythema on R proximal anterior thigh) Neurological: Alert, Oriented, Normal Cognition, No Motor/Sensory Deficits Psychiatric: Normal Affect, Normal Mood Skin: Warm, Dry, Intact, Normal Color, No Rash, Other (area of raised fluctuance with surrounding localized erythema on Right proximal thigh) Location, Skin: Lower Extremity, Right (proximal anterior) Associated features: Inflammation (with fluctuance) Lymphatic: No Adenopathy ED SKIN PROCEDURES - I&D Site: R proximal anterior thigh Skin Prep: Chlorhexidine (Hibiciens) Local Anesthesia: Lidocaine: 1% Plain Local Anesthetic Volume: Other (10) Area Incised With: 11 Blade Drainage: Purulent, Bloody, Small Amount Probed to Break Up Loculations: Yes Packed With: None Sterile Dressing: Other (pressure dressing with coban) Complications: No Course - Vital Signs Last Recorded V/S: Last Vital Signs Temp 98.5 F 11/14/18 16:03 Pulse 99 11/14/18 16:03 Resp 20 11/14/18 16:03 BP 138/94 H 11/14/18 16:03 Pulse Ox 98 11/14/18 16:03 - Orders/Labs/Meds Meds: Medications Discontinued Medications Generic Name Dose Route Start Last Admin Trade Name Freq PRN Reason Stop Dose Admin Hydromorphone HCl 0.5 mg 11/14/18 16:50 11/14/18 17:17 Dilaudid IM 11/14/18 16:51 0.5 mg ONETIME ONE Administration Lidocaine HCl 10 ml 11/14/18 16:49 11/14/18 17:19 Xylocaine 1% INJECT 11/14/18 16:50 10 ml ONETIME ONE Administration Lorazepam 0.5 mg 11/14/18 17:31 11/14/18 17:36 Ativan PO 11/14/18 17:32 0.5 mg ONETIME ONE Administration Ondansetron HCl 4 mg 11/14/18 16:50 11/14/18 17:18 Zofran Odt PO 11/14/18 16:51 4 mg ONETIME ONE Administration - Re-Assessments/Exams Free Text/Narrative Re-Assessment/Exam: 11/14/18 17:19 Patient presents to the ED for evaluation of an abscess on her right anterior proximal thigh. I will incise and drain this area and place her on clindamycin 300 mg 4 times daily for a week. She will need to follow up with her primary care provider at the end of the antibiotics to make sure that the infection is clearing appropriately. She may need to have the antibiotics extended if not. She was given a prescription for 10 days of antibiotic therapy. Departure - Departure Time of Disposition: 17:41 Disposition: Home, Self-Care 01 Condition: Fair Clinical Impression: Abscess - Discharge Information *PRESCRIPTION DRUG MONITORING PROGRAM REVIEWED*: No *COPY OF PRESCRIPTION DRUG MONITORING REPORT IN PATIENT CALEB: No Prescriptions: Clindamycin HCl 300 mg PO QID #28 capsule Instructions: Skin Abscess, [id number], Incision and Drainage, Care After Referrals: Anahi Canales PA-C [Primary Care Provider] - Forms: ED Department Discharge Additional Instructions: You were evaluated in the ED today for the abscess on your right upper thigh. This was incised and drained in the ED. You were given a prescription for antibiotics, please fill these and take as directed. You may take 800 mg of ibuprofen every 6 hours as needed for further pain relief. Please return to the ED if your symptoms should change or worsen.
[2018-11-14] MEDS ORDERED: LORazepam 0.5 MG Tab PO ONE (17:31)
== END 2018-11-14 18:15 | disposition home or self-care (01) ==
LOC: JD.ED 15:53
DX: L02.415 Cutaneous abscess of right lower limb (principal); E66.9 Obesity, unspecified; F17.210 Nicotine dependence, cigarettes, uncomplicated; Z88.1 Allergy status to other antibiotic agents; Z88.0 Allergy status to penicillin; Z79.51 Long term (current) use of inhaled steroids; Z91.048 Other nonmedicinal substance allergy status; Z68.41 Body mass index [BMI] 40.0-44.9, adult
CPT/HCPCS: 10060; 96374; 99282; A9270; J1170; J2001; 99283

== ENCOUNTER 2019-01-30 22:12 | Emergency (ER) | payer SELFPAY ==
[2019-01-30] MEDS ORDERED: FLU Vacc QS2019-20(6MOS+)/PF 60 MCG/0.5 ML SYRINGE IM ONE (23:00)
--- NOTE | 2019-01-30 23:03 | EDM.PDOC ---
ED HPI GENERAL MEDICAL PROBLEM - General Chief Complaint: Abdominal Pain Stated Complaint: ABD PAIN ABNORMAL STOOL Time Seen by Provider: 01/30/19 22:15 Source of Information: Reports: Patient History Limitations: Reports: No Limitations - History of Present Illness INITIAL COMMENTS - FREE TEXT/NARRATIVE: This is a 28-year-old female. She has been having abdominal pain for at least a week. She saw her family via her on because of the lower abdominal pain and she got a CT scan that was oral and IV contrast that did not show any abnormality other than the liver cyst that was stable and marked increased stool in her colon. All the other organs and bowel were normal. She also got a CBC with a white count of 6.4C reactive protein of 1.3 her chemistry panel was normal and her urine was normal. She says she is now having stool with coffee grounds and she is having instead of intermittent abdominal pain constant lower abdominal pain. She denies being . She's had no fever no chills. She says when she eats she gets nauseated but she has not vomited. She denies any other acute symptoms. Bilateral Abdomen Pain Score (Numeric/FACES): 9 - Related Data Allergies Allergy/AdvReac Type Severity Reaction Status Date / Time adhesive Allergy Hives Verified 01/30/19 22:28 clarithromycin Allergy Hives Verified 01/30/19 22:28 haloperidol Allergy Difficulty Verified 01/30/19 22:28 Breathing Penicillins Allergy Airway Verified 01/30/19 22:28 Tightness talc Allergy Difficulty Verified 01/30/19 22:28 Breathing Home Meds: Home Meds Ergocalciferol (Vitamin D2) [Vitamin D2] 1 tab PO WEEKLY 03/19/18 [History] FLUoxetine HCl [Prozac] 80 mg PO DAILY 03/19/18 [History] Rizatriptan Benzoate [Rizatriptan] 10 mg PO ASDIRECTED PRN 11/14/18 [History] Topiramate 25 mg PO DAILY 01/30/19 [History] buPROPion HCl [Wellbutrin Xl] 300 mg PO DAILY 01/30/19 [History] Dicyclomine [Bentyl] 20 mg PO Q6H PRN #20 tab 01/31/19 [Rx] Ondansetron [Zofran] 4 mg PO Q6H PRN #20 tab 01/31/19 [Rx] Past Medical History HEENT History: Reports: Impaired Vision Other HEENT History: glasses Cardiovascular History: Reports: Blood Clots/VTE/DVT Other Cardiovascular History: DVT, right heart damage Respiratory History: Reports: PE Other Respiratory History: PE with bilateral saddle bags 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: Endometriosis, Polycystic Ovaries Neurological History: Reports: Concussion, Migraines Other Neuro History: past concussion Psychiatric History: Reports: Anxiety Endocrine/Metabolic History: Reports: Obesity/BMI 30+ Hematologic History: Reports: Anticoagulation Therapy, Other (See Below) Other Hematologic History: vitamin D deficient, has had treatment of D2 Dermatologic History: Reports: Other (See Below) Other Dermatologic History: reoccuring cysts to inner thighs and facial rash reoccurring - Infectious Disease History Infectious Disease History: Reports: Chicken Pox - Past Surgical History HEENT Surgical History: Reports: Oral Surgery Cardiovascular Surgical History: Reports: Other (See Below), Vascular Surgery Other Cardiovascular Surgeries/Procedures: IVC filter in groin taken out friday03/13/18 Musculoskeletal Surgical History: Reports: Other (See Below) Social & Family History - Family History Family Medical History: Noncontributory - Tobacco Use Smoking Status *Q: Former Smoker Used Tobacco, but Quit: Yes Month/Year Tobacco Last Used: 2016 - Caffeine Use Caffeine Use: Reports: Coffee, Tea - Recreational Drug Use Recreational Drug Use: No - Living Situation & Occupation Living situation: Reports: , with Significant Other (Boyfriend + his son ) 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 Denies: Vomiting : Reports: No Symptoms Musculoskeletal: Reports: No Symptoms Skin: Reports: No Symptoms Neurological: Reports: No Symptoms Psychiatric: Reports: No Symptoms Hematologic/Lymphatic: Reports: No Symptoms ED EXAM, GI/ABD - Physical Exam Exam: See Below Exam Limited By: No Limitations General Appearance: Alert, WD/WN, No Apparent Distress Eyes: Bilateral: Normal Appearance Ears: Normal External Exam Nose: Normal Inspection Throat/Mouth: Normal Inspection, Normal Lips, Normal Voice, No Airway Compromise Head: Normocephalic Neck: Supple Respiratory/Chest: No Respiratory Distress GI/Abdominal Exam: Soft, Other (She has tenderness generalized in the lower abdomen but there is no masses no rebound noted, bowel sounds are positive but they are decreased. There are no masses noted. She is very tender along the before meals and descending colon side and the descending side as well. Again there is no rebound there is no peritoneal irritation noted.) Back Exam: Full Range of Motion Extremities: Normal Inspection, Normal Range of Motion Neurological: Alert, Oriented Psychiatric: Normal Affect, Normal Mood Skin Exam: Warm, Dry Course - Vital Signs Last Recorded V/S: Last Vital Signs Temp 97.4 F 01/30/19 22:32 Pulse 79 01/30/19 22:32 Resp 16 01/30/19 22:32 BP 124/78 01/30/19 22:32 Pulse Ox 97 01/30/19 22:32 - Orders/Labs/Meds Orders: Active Orders 24 hr Category Date Time Status Influenza Vaccine Charge [RC] .DISCHARGE Care 01/30/19 22:47 Active Abdomen 2V AP Flat Upright [CR] Stat Exams 01/30/19 22:59 Taken Labs: Laboratory Tests 01/30/19 01/30/19 01/30/19 Range/Units 23:17 23:17 23:17 WBC 9.22 (3.98-10.04) K/mm3 RBC 4.64 (3.98-5.22) M/mm3 Hgb 14.1 (11.2-15.7) gm/dl Hct 42.1 (34.1-44.9) % MCV 90.7 (79.4-94.8) fl MCH 30.4 (25.6-32.2) pg MCHC 33.5 (32.2-35.5) g/dl RDW Std Deviation 40.5 (36.4-46.3) fL Plt Count 311 (182-369) K/mm3 MPV 10.0 (9.4-12.3) fl Neut % (Auto) 55.1 (34.0-71.1) % Lymph % (Auto) 33.0 (19.3-51.7) % [place] % (Auto) 9.4 (4.7-12.5) % Eos % (Auto) 1.8 (0.7-5.8) Baso % (Auto) 0.4 (0.1-1.2) % Neut # (Auto) 5.07 (1.56-6.13) K/mm3 Lymph # (Auto) 3.04 (1.18-3.74) K/mm3 [place] # (Auto) 0.87 H (0.24-0.36) K/mm3 Eos # (Auto) 0.17 (0.04-0.36) K/mm3 Baso # (Auto) 0.04 (0.01-0.08) K/mm3 Sodium 145 (136-145) mEq/L Potassium 4.3 (3.5-5.1) mEq/L Chloride 108 H (98-107) mEq/L Carbon Dioxide 30 (21-32) mEq/L Anion Gap 11.3 (5-15) BUN 8 (7-18) mg/dL Creatinine 1.0 (0.55-1.02) mg/dL Est Cr Clr Drug Dosing 72.32 mL/min Estimated GFR (MDRD) > 60 (>60) mL/min BUN/Creatinine Ratio 8.0 L (14-18) Glucose 99 (74-106) mg/dL Calcium 8.8 (8.5-10.1) mg/dL Total Bilirubin 0.5 (0.2-1.0) mg/dL AST 7 L (15-37) U/L ALT 27 (14-59) U/L Alkaline Phosphatase 98 (46-116) U/L C-Reactive Protein 0.7 (<1.0) mg/dL Total Protein 7.1 (6.4-8.2) g/dl Albumin 3.7 (3.4-5.0) g/dl Globulin 3.4 gm/dL Albumin/Globulin Ratio 1.1 (1-2) Lipase 143 (73-393) U/L HCG, Qual Negative (NEGATIVE) Meds: Medications Discontinued Medications Generic Name Dose Route Start Last Admin Trade Name Freq PRN Reason Stop Dose Admin Influenza Virus Vaccine 1 each 01/30/19 22:46 Pharmacy To Dose - Influenza Vaccine IM 01/30/19 22:47 ONETIME ONE Influenza Virus Vaccine 60 mcg 01/30/19 23:00 01/30/19 23:13 Fluzone Quad Syringe IM 01/30/19 23:01 60 mcg .ONCE ONE Administration Ketorolac Tromethamine 60 mg 01/30/19 23:40 01/30/19 23:49 Toradol IM 01/30/19 23:41 60 mg ONETIME ONE Administration - Radiology Interpretation Free Text/Narrative:: Flat and upright of the abdomen did not show any acute changes but she does have large amount of stool in the ascending colon with colon dilatation as well as constant stool in the transverse and descending colon with some mild dilatation of the colon there as well. - Re-Assessments/Exams Free Text/Narrative Re-Assessment/Exam: 01/30/19 23:13 Hemoccult stool shows no blood. 01/31/19 01:05 I spoke to the patient regarding lab results. Her white count is normal. Her C- reactive protein is 0.7 and normal. All her blood work was absolutely normal and she is not . I'm going to give her a bottle of mag citrate to take home with instructions to drink half the bottle when she gets home wait 12 hours if she doesn't have good bowel movements drink the other half bottle. We' ll also put her on some Bentyl for the abdominal cramps and some Zofran for her nausea. He is to follow-up with her family doctor this coming week. Departure - Departure Time of Disposition: 01:06 Disposition: Home, Self-Care 01 Condition: Fair Clinical Impression: Abdominal cramps, Obstipation, Nausea Constipation Qualifiers: Constipation type: unspecified constipation type Qualified Code(s): K59.00 - Constipation, unspecified - Discharge Information *PRESCRIPTION DRUG MONITORING PROGRAM REVIEWED*: Not Applicable *COPY OF PRESCRIPTION DRUG MONITORING REPORT IN PATIENT CALEB: Not Applicable Prescriptions: Dicyclomine [Bentyl] 20 mg PO Q6H PRN #20 tab PRN Reason: Abdominal Pain Ondansetron [Zofran] 4 mg PO Q6H PRN #20 tab PRN Reason: Nausea Instructions: High-Fiber Diet Referrals: Anahi Canales PA-C [Primary Care Provider] - Forms: ED Department Discharge Additional Instructions: Drink half of the bottle of mag citrate when you get home, if you do not have decent bowel movement in 12 hours drink the other half bottle, use the Bentyl as needed for abdominal cramps, use Zofran for nausea, follow up with your family provider this coming week for recheck, return to the ER if needed - My Orders Last 24 Hours: My Active Orders 01/30/19 22:47 Influenza Vaccine Charge [RC] .DISCHARGE 01/30/19 22:59 Abdomen 2V AP Flat Upright [CR] Stat - Assessment/Plan Last 24 Hours: My Active Orders 01/30/19 22:47 Influenza Vaccine Charge [RC] .DISCHARGE 01/30/19 22:59 Abdomen 2V AP Flat Upright [CR] Stat
[2019-01-30] MEDS ORDERED: Ketorolac 60 MG/2 ML SDV IM ONE (23:40)
[2019-01-31] MEDS ORDERED: Magnesium Citrate Solution 296 ML Bottle PO ONE (01:11)
--- NOTE | 2019-01-31 16:00 | CR ---
Abdomen: Supine and upright views of the abdomen were obtained. Comparison: Prior CT abdomen and pelvis exam performed on 01/29/19. Findings: Contrast is noted within the colon from recent CT exam. Calcification is noted within the left pelvis compatible with phlebolith. Bony structures are unremarkable. No free air is seen. No discrete soft tissue abnormality is appreciated. Impression: 1. Nothing acute is seen on supine abdominal x-ray. Diagnostic code #1
== END 2019-01-31 01:18 | disposition home or self-care (01) ==
LOC: JD.ED 22:12
DX: K59.00 Constipation, unspecified (principal); R11.0 Nausea; F41.9 Anxiety disorder, unspecified; E66.9 Obesity, unspecified; Z91.048 Other nonmedicinal substance allergy status; Z88.1 Allergy status to other antibiotic agents; Z88.0 Allergy status to penicillin; Z88.8 Allergy status to other drugs, medicaments and biological substances; Z79.899 Other long term (current) drug therapy; Z86.718 Personal history of other venous thrombosis and embolism; Z86.711 Personal history of pulmonary embolism; Z79.01 Long term (current) use of anticoagulants; Z68.30 Body mass index [BMI] 30.0-30.9, adult; Z87.891 Personal history of nicotine dependence; Z23 Encounter for immunization
CPT/HCPCS: 36415; 74019; 80053; 83690; 84703; 85025; 86140; 90471; 90686; 96372; 99284; A9270; J1885; 99283; G0008

== ENCOUNTER 2019-04-13 12:28 | Emergency (ER) | payer SELFPAY ==
[2019-04-13] MEDS ORDERED: Ondansetron 4 MG/2 ML SDV IM ONE (12:54)
[2019-04-13] MEDS ORDERED: HYDROmorphone 1 MG/ML Syringe IM ONE (12:54)
--- NOTE | 2019-04-13 13:01 | EDM.PDOC ---
ED HPI GENERAL MEDICAL PROBLEM - General Chief Complaint: Upper Extremity Injury/Pain Stated Complaint: R ARM NUMBNESS Time Seen by Provider: 04/13/19 12:47 Source of Information: Reports: Patient History Limitations: Reports: No Limitations - History of Present Illness INITIAL COMMENTS - FREE TEXT/NARRATIVE: She is an unfortunate morbidly obese 28-year-old female who presents emergency Department today with complaint of right upper extremity pain. Patient reports she had a radioablation of an occipital nerve 2 days ago done in [place] and 4 hours after that procedure she started having pain burning and numbness to the right upper extremity. Pain has persisted and increasingly worsened since she called her provider in [place] who instructed her come to the emergency department for evaluation. On arrival to emergency department patient reports she hasn't burning tingling numbing sensation from her right lateral neck that radiates down her right trapezius into her right arm to her right fingers. Patient reports the pain is so severe that it hurts more when she attempts to pickle pumper things at home. Patient reports that she can tolerate pain well up to a level VII, this pain is a level X and is becoming intolerable so she presented emergency department for evaluation. Patient has had positive nausea positive vomiting positive chest pain positive shortness of breath no fever no chills positive diarrhea. Patient reports that her abdominal symptoms are chronic in nature and she has not been fully evaluated with an EGD or colonoscopy however, her primary care provider has mentioned pursuing an EGD and colonoscopy in the past. Right Arm Pain Score (Numeric/FACES): 9 - Related Data Allergies Allergy/AdvReac Type Severity Reaction Status Date / Time adhesive Allergy Hives Verified 01/30/19 22:28 clarithromycin Allergy Hives Verified 01/30/19 22:28 haloperidol Allergy Difficulty Verified 01/30/19 22:28 Breathing Penicillins Allergy Airway Verified 01/30/19 22:28 Tightness talc Allergy Difficulty Verified 01/30/19 22:28 Breathing Home Meds: Home Meds Ergocalciferol (Vitamin D2) [Vitamin D2] 1 tab PO WEEKLY 03/19/18 [History] FLUoxetine HCl [Prozac] 80 mg PO DAILY 03/19/18 [History] Rizatriptan Benzoate [Rizatriptan] 10 mg PO ASDIRECTED PRN 11/14/18 [History] Topiramate 25 mg PO DAILY 01/30/19 [History] buPROPion HCl [Wellbutrin Xl] 300 mg PO DAILY 01/30/19 [History] Dicyclomine [Bentyl] 20 mg PO Q6H PRN #20 tab 01/31/19 [Rx] Ondansetron [Zofran] 4 mg PO Q6H PRN #20 tab 01/31/19 [Rx] Past Medical History HEENT History: Reports: Impaired Vision Other HEENT History: glasses Cardiovascular History: Reports: Blood Clots/VTE/DVT Other Cardiovascular History: DVT, right heart damage Respiratory History: Reports: PE Other Respiratory History: PE with bilateral saddle bags 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, 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 Neurological History: Reports: Concussion, Migraines Other Neuro History: past concussion, frequent occipital ablations Psychiatric History: Reports: Anxiety Endocrine/Metabolic History: Reports: Obesity/BMI 30+ Hematologic History: Reports: Anticoagulation Therapy, Other (See Below) Other Hematologic History: vitamin D deficient, has had treatment of D2 Dermatologic History: Reports: Other (See Below) Other Dermatologic History: reoccuring cysts to inner thighs and facial rash reoccurring - Infectious Disease History Infectious Disease History: Reports: Chicken Pox - Past Surgical History HEENT Surgical History: Reports: Oral Surgery Cardiovascular Surgical History: Reports: Other (See Below), Vascular Surgery Other Cardiovascular Surgeries/Procedures: IVC filter in groin taken out friday03/13/18 Musculoskeletal Surgical History: Reports: Other (See Below) Social & Family History - Family History Family Medical History: Noncontributory - Tobacco Use Smoking Status *Q: Current Every Day Smoker Years of Tobacco use: 10 Packs/Tins Daily: 0.5 - Caffeine Use Caffeine Use: Reports: Coffee, Energy Drinks - Recreational Drug Use Recreational Drug Use: No - Living Situation & Occupation Living situation: Reports: , with Significant Other (Boyfriend + his son ) 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) Review of Systems - Review of Systems Review Of Systems: See Below Constitutional: Denies: Chills, Fever Respiratory: Reports: Shortness of Breath Cardiovascular: Reports: Chest Pain GI/Abdominal: Reports: Abdominal Pain (epigastric), Nausea, Vomiting Musculoskeletal: Reports: Arm Pain Neurological: Reports: Numbness (To the right upper extremity), Tingling, Weakness ED EXAM, GENERAL - Physical Exam Exam: See Below Exam Limited By: No Limitations General Appearance: Alert, WD/WN, Moderate Distress, Obese Ears: Normal External Exam, Normal Canal, Hearing Grossly Normal, Normal TMs Nose: Normal Inspection, Normal Mucosa, No Blood Throat/Mouth: Normal Inspection, Normal Lips, Normal Teeth, Normal Gums, Normal Oropharynx, Normal Voice, No Airway Compromise Respiratory/Chest: No Respiratory Distress, Lungs Clear, Normal Breath Sounds, No Accessory Muscle Use, Other (Mild tenderness to entire anterior chest wall) Cardiovascular: Normal Peripheral Pulses, Regular Rate, Rhythm, No Edema, No Gallop, No JVD, No Murmur, No Rub GI/Abdominal: Normal Bowel Sounds, Soft, Tender (Mild epigastric tenderness) Back Exam: Normal Inspection, Full Range of Motion, NT Extremities: Normal Inspection, Normal Range of Motion, No Pedal Edema, Normal Capillary Refill, Other (Diffuse tenderness to the entirety of her right arm) Neurological: Alert, Oriented, CN II-XII Intact, Normal Cognition, Normal Gait, Normal Reflexes, No Motor/Sensory Deficits Skin Exam: Warm, Dry Course - Vital Signs Last Recorded V/S: Last Vital Signs Temp 98.5 F 04/13/19 12:41 Pulse 91 04/13/19 12:41 Resp 18 04/13/19 12:41 BP 155/90 H 04/13/19 12:41 Pulse Ox 98 04/13/19 12:41 - Orders/Labs/Meds Meds: Medications Discontinued Medications Generic Name Dose Route Start Last Admin Trade Name Donaldq PRN Reason Stop Dose Admin Hydromorphone HCl 1 mg 04/13/19 12:54 04/13/19 13:31 Dilaudid IM 04/13/19 12:55 1 mg ONETIME ONE Administration Ondansetron HCl 4 mg 04/13/19 12:54 04/13/19 13:32 Zofran IM 04/13/19 12:55 4 mg ONETIME ONE Administration - Re-Assessments/Exams Free Text/Narrative Re-Assessment/Exam: 04/13/19 13:53 Patient's prescription monitoring program score is 610, patient had a prescription for gabapentin on 03/31/19 and promethazine with codeine on 2018 and hydrocodone on 03/09/2019 as had a total of 30 prescriptions from 12 different prescribers through 6 different pharmacies which is disconcerting for potential abuse we will not be prescribing opioids at this visit Free Text/Narrative Re-Assessment/Exam: 04/13/19 14:05 Patient reports pain is improved but not resolved discharge and outpatient follow-up outpatient with her PCP Departure - Departure Time of Disposition: 14:05 Disposition: Home, Self-Care 01 Condition: Good Clinical Impression: Cervical radiculopathy - Discharge Information Instructions: Cervical Radiculopathy Referrals: Anahi Canales PA-C [Primary Care Provider] - Forms: ED Department Discharge Additional Instructions: Home, rest, heating pad 20 minutes at a time 3-4 times daily, return as needed for worsening condition Sepsis Event Note - Evaluation Sepsis Screening Result: No Definite Risk - Focused Exam Vital Signs: Vital Signs Temp Pulse Resp BP Pulse Ox 04/13/19 12:41 98.5 F 91 18 155/90 H 98 Date Exam was Performed: 04/13/19 Time Exam was Performed: 14:05
== END 2019-04-13 14:25 | disposition home or self-care (01) ==
LOC: JD.ED 12:28
DX: M54.12 Radiculopathy, cervical region (principal); F41.9 Anxiety disorder, unspecified; E66.9 Obesity, unspecified; Z68.38 Body mass index [BMI] 38.0-38.9, adult; Z86.711 Personal history of pulmonary embolism; Z86.718 Personal history of other venous thrombosis and embolism; F17.210 Nicotine dependence, cigarettes, uncomplicated; Z88.1 Allergy status to other antibiotic agents; Z88.0 Allergy status to penicillin; Z91.048 Other nonmedicinal substance allergy status; Z79.899 Other long term (current) drug therapy
CPT/HCPCS: 96372; 99283; J1170; J2405

== ENCOUNTER 2019-04-14 13:08 | Emergency (ER) | payer SELFPAY ==
[2019-04-14] MEDS ORDERED: Sodium Chloride 0.9% 10 ML Syringe FLUSH PRN (13:25)
--- NOTE | 2019-04-14 13:30 | EDM.PDOC ---
ED HPI GENERAL MEDICAL PROBLEM - General Chief Complaint: Upper Extremity Injury/Pain Stated Complaint: R ARM NUMBNESS/PAIN Time Seen by Provider: 04/14/19 13:17 Source of Information: Reports: Patient History Limitations: Reports: No Limitations - History of Present Illness INITIAL COMMENTS - FREE TEXT/NARRATIVE: Patient is unfortunate morbidly obese 28-year-old female who presents emergent department today with complaint of left neck pain that radiates to her left arm. Patient was seen here yesterday for same and diagnosed with cervical radiculopathy and discharged home. Patient reports that she continues to have pain to her right arm and today she reports she has swelling to her right arm and her right arm is colder than her left arm. Secondary to these reasons the patient presented emergency department for reevaluation. Patient reports he continues to have pain which is a burning tingling sensation to her right upper extremity. Objective exam shows no swelling no erythema no difference in size between her right hand and left hand no edema patient reports she does have increased weakness to her right arm objectively the patient is able to move and control her right arm without any difficulty DTRs are intact Bilateral Arm Pain Score (Numeric/FACES): 10 - Related Data Allergies Allergy/AdvReac Type Severity Reaction Status Date / Time adhesive Allergy Hives Verified 04/14/19 13:19 clarithromycin Allergy Hives Verified 04/14/19 13:19 haloperidol Allergy Difficulty Verified 04/14/19 13:19 Breathing Penicillins Allergy Airway Verified 04/14/19 13:19 Tightness talc Allergy Difficulty Verified 04/14/19 13:19 Breathing Home Meds: Home Meds FLUoxetine HCl [Prozac] 80 mg PO DAILY 03/19/18 [History] Rizatriptan Benzoate [Rizatriptan] 10 mg PO ASDIRECTED PRN 11/14/18 [History] Topiramate 25 mg PO DAILY 01/30/19 [History] buPROPion HCl [Wellbutrin Xl] 300 mg PO DAILY 01/30/19 [History] Gabapentin [Gralise] 1,200 mg PO TID 04/14/19 [History] Past Medical History HEENT History: Reports: Impaired Vision Other HEENT History: glasses Cardiovascular History: Reports: Blood Clots/VTE/DVT Other Cardiovascular History: DVT, right heart damage Respiratory History: Reports: PE Other Respiratory History: PE with bilateral saddle bags Gastrointestinal History: Reports: None Genitourinary History: Reports: None 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: Endometriosis, Polycystic Ovaries Musculoskeletal History: Reports: None Neurological History: Reports: Concussion, Migraines Other Neuro History: past concussion, frequent occipital ablations Psychiatric History: Reports: Anxiety Endocrine/Metabolic History: Reports: Obesity/BMI 30+ Hematologic History: Reports: Anticoagulation Therapy, Other (See Below) Other Hematologic History: vitamin D deficient, has had treatment of D2 Immunologic History: Reports: None Oncologic (Cancer) History: Reports: None Dermatologic History: Reports: Other (See Below) Other Dermatologic History: reoccuring cysts to inner thighs and facial rash reoccurring - Infectious Disease History Infectious Disease History: Reports: Chicken Pox - Past Surgical History HEENT Surgical History: Reports: Oral Surgery Cardiovascular Surgical History: Reports: Other (See Below), Vascular Surgery Other Cardiovascular Surgeries/Procedures: IVC filter in groin taken out friday03/13/18 Social & Family History - Family History Family Medical History: Noncontributory - Tobacco Use Smoking Status *Q: Never Smoker - Caffeine Use Caffeine Use: Reports: Soda - Recreational Drug Use Recreational Drug Use: No - Living Situation & Occupation Living situation: Reports: , with Significant Other (Boyfriend + his son ) 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[employer]) Review of Systems - Review of Systems Review Of Systems: See Below Constitutional: Denies: Chills, Fever Musculoskeletal: Reports: Arm Pain ED EXAM, GENERAL - Physical Exam Exam: See Below Exam Limited By: No Limitations General Appearance: Alert, Mild Distress, Obese Throat/Mouth: Normal Inspection, Normal Lips, Normal Teeth, Normal Gums, Normal Oropharynx, Normal Voice, No Airway Compromise Head: Atraumatic, Normocephalic Neck: Normal Inspection, Supple, Non-Tender, Full Range of Motion Respiratory/Chest: No Respiratory Distress, Lungs Clear, Normal Breath Sounds, No Accessory Muscle Use, Chest Non-Tender Cardiovascular: Normal Peripheral Pulses, Regular Rate, Rhythm, No Edema, No Gallop, No JVD, No Murmur, No Rub GI/Abdominal: Normal Bowel Sounds, Soft, Non-Tender, No Organomegaly, No Distention, No Abnormal Bruit, No Mass Extremities: Normal Inspection, Normal Range of Motion, No Pedal Edema, Normal Capillary Refill, Other (Diffuse tenderness to right upper extremity) Neurological: Alert, Oriented, CN II-XII Intact, Normal Gait, Normal Reflexes, No Motor/Sensory Deficits Skin Exam: Warm, Dry Course - Vital Signs Last Recorded V/S: Last Vital Signs Temp 97.6 F 04/14/19 13:16 Pulse 92 04/14/19 13:16 Resp 16 04/14/19 13:16 BP 133/81 04/14/19 13:16 Pulse Ox 97 04/14/19 13:16 - Orders/Labs/Meds Orders: Active Orders 24 hr Category Date Time Status Sodium Chloride 0.9% [Saline Flush] Med 04/14/19 13:25 Active 10 ml FLUSH ASDIRECTED PRN Saline Lock Insert [OM.PC] Stat Oth 04/14/19 13:25 Ordered Medication Orders Sodium Chloride (Saline Flush) 10 ml FLUSH ASDIRECTED PRN PRN Reason: Keep Vein Open Last Admin: 04/14/19 14:09 Dose: 10 ml Meds: Medications Generic Name Dose Route Start Last Admin Trade Name Freq PRN Reason Stop Dose Admin Sodium Chloride 10 ml 04/14/19 13:25 04/14/19 14:09 Saline Flush FLUSH 10 ml ASDIRECTED PRN Administration Keep Vein Open Discontinued Medications Generic Name Dose Route Start Last Admin Trade Name Freq PRN Reason Stop Dose Admin Acetaminophen 100 mls @ 400 mls/hr 04/14/19 13:25 04/14/19 14:03 Ofirmev IV 04/14/19 13:39 400 mls/hr NOW ONE Administration Ketorolac Tromethamine 30 mg 04/14/19 14:28 04/14/19 14:43 Toradol IVPUSH 04/14/19 14:29 30 mg ONETIME ONE Administration Lorazepam 1 mg 04/14/19 14:33 04/14/19 14:44 Ativan IVPUSH 04/14/19 14:34 1 mg ONETIME ONE Administration - Re-Assessments/Exams Free Text/Narrative Re-Assessment/Exam: 04/14/19 14:27 Cervical spine interpreted by me EMIR Free Text/Narrative Re-Assessment/Exam: 04/14/19 14:34 Patient notified nursing that she feels like she may have a blood clot in her right arm, we will sono Free Text/Narrative Re-Assessment/Exam: 04/14/19 16:20 Patient was sleeping and had to wake patient up patient reports that she has had no decrease in pain at all, right upper extremity venous ultrasound "impression: #1 no venous thrombosis seen within the right upper extremity." We will discharge patient to home have patient take Motrin or Tylenol for pain and outpatient follow-up outpatient with her PCP Departure - Departure Time of Disposition: 16:20 Disposition: Home, Self-Care 01 Clinical Impression: Cervical radiculopathy - Discharge Information Instructions: Cervical Radiculopathy Referrals: Anahi Canales PA-C [Primary Care Provider] - Forms: ED Department Discharge Additional Instructions: Home, rest, Tylenol or Motrin for pain, return as needed for worsening condition Sepsis Event Note - Evaluation Sepsis Screening Result: No Definite Risk - Focused Exam Vital Signs: Vital Signs Temp Pulse Resp BP Pulse Ox 04/14/19 13:16 97.6 F 92 16 133/81 97 Date Exam was Performed: 04/14/19 Time Exam was Performed: 16:19 - My Orders Last 24 Hours: My Active Orders 04/14/19 13:25 Sodium Chloride 0.9% [Saline Flush] 10 ml FLUSH ASDIRECTED PRN Saline Lock Insert [OM.PC] Stat - Assessment/Plan Last 24 Hours: My Active Orders 04/14/19 13:25 Sodium Chloride 0.9% [Saline Flush] 10 ml FLUSH ASDIRECTED PRN Saline Lock Insert [OM.PC] Stat
[2019-04-14] MEDS ORDERED: Ketorolac 30 MG/ML SDV IVPUSH ONE (14:28)
[2019-04-14] MEDS ORDERED: LORazepam 2 MG/ML SDV IVPUSH ONE (14:33)
--- NOTE | 2019-04-14 14:37 | CR ---
Cervical spine: Lateral, AP, odontoid and oblique views of the cervical spine were obtained. Comparison: Prior MRI cervical spine exam of 05/15/18. Disc space narrowing noted at C2-C3 which is felt to be rudimentary from attempted block vertebra. Minimal disc space narrowing noted at C5-C6. Vertebral body heights and other disc spaces are maintained. Neural foramina are widely patent. No subluxation or fracture is seen. Impression: 1. Minimal disc space narrowing at C5-C6. 2. Developmental anomaly as noted above. 3. Cervical spine study is otherwise unremarkable. Diagnostic code #2 This report was dictated in [place] Standard Time
--- NOTE | 2019-04-14 16:08 | US ---
Right upper extremity venous ultrasound: Duplex and color Doppler evaluation was obtained of the right internal jugular, subclavian, axillary, brachial, basilic, radial and ulnar veins. Findings: Normal compression, phasic flow and augmentation is seen. Impression: 1. No venous thrombosis is seen within the right upper extremity. Diagnostic code #1 This report was dictated in [place] Standard Time
== END 2019-04-14 16:30 | disposition home or self-care (01) ==
LOC: JD.ED 13:08
DX: M54.12 Radiculopathy, cervical region (principal); G43.909 Migraine, unspecified, not intractable, without status migrainosus; E66.01 Morbid (severe) obesity due to excess calories; Z68.39 Body mass index [BMI] 39.0-39.9, adult; Z88.0 Allergy status to penicillin; Z88.1 Allergy status to other antibiotic agents; Z88.8 Allergy status to other drugs, medicaments and biological substances; Z91.048 Other nonmedicinal substance allergy status; Z91.09 Other allergy status, other than to drugs and biological substances; Z79.899 Other long term (current) drug therapy
CPT/HCPCS: 72050; 93971; 96365; 96375; 99284; J0131; J1885; J2060; 99283

== ENCOUNTER 2019-05-04 09:00 | Emergency (ER) | payer OTHER ==
[2019-05-04] MEDS ORDERED: Sodium Chloride 0.9% 10 ML Syringe FLUSH PRN ×2 (09:35→09:36)
[2019-05-04] MEDS ORDERED: HYDROmorphone 0.5 MG/0.5 ML Syringe IVPUSH ONE (09:37)
[2019-05-04] MEDS ORDERED: Ondansetron 4 MG/2 ML SDV IVPUSH ONE (09:37)
[2019-05-04] MEDS ORDERED: Acetaminophen 325 MG Tab PO ONE (10:29)
[2019-05-04] MEDS ORDERED: Ketorolac 30 MG/ML SDV IVPUSH SCH (10:30)
--- NOTE | 2019-05-04 10:39 | CR ---
Chest and left ribs: Frontal view of the chest was obtained as well as three views left ribs. Comparison: Previous chest x-ray of 03/19/18. Heart size and mediastinum are normal. Lungs are clear. No pneumothorax is seen. No discrete fracture or other left sided rib abnormality is appreciated. Impression: 1. No abnormality is appreciated on left rib exam. 2. Nothing acute is seen on frontal chest x-ray. Diagnostic code #1 Study was dictated in [place] Standard Time
--- NOTE | 2019-05-04 10:39 | CT ---
CT cervical spine Technique: Multiple axial sections were obtained from above C1 inferiorly to the bottom of T2. Reconstructed sagittal and coronal images were reviewed. Comparison: Prior cervical spine plain film exam of 04/14/19. Findings: Rudimentary disc noted at C2-C3 felt compatible with developmental anomaly. Other disc spaces are maintained. Vertebral body heights are maintained. No bony central or bony neural foraminal stenosis is seen. Incomplete arch is noted of C1 which is a normal variant. No abnormal subluxation is appreciated. Impression: 1. Findings believed to be incidental as noted above. 2. Nothing acute is appreciated on CT study of the cervical spine. Diagnostic code #2 Study was dictated in [place] Standard Time
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
== END 2019-05-04 12:16 | disposition home or self-care (01) ==
LOC: JD.ED 09:00
DX: S13.9XXA Sprain of joints and ligaments of unspecified parts of neck, initial encounter (principal); S20.212A Contusion of left front wall of thorax, initial encounter; S70.02XA Contusion of left hip, initial encounter; Z86.718 Personal history of other venous thrombosis and embolism; Z86.711 Personal history of pulmonary embolism; F41.9 Anxiety disorder, unspecified; F32.9 Major depressive disorder, single episode, unspecified; E66.9 Obesity, unspecified; Z68.39 Body mass index [BMI] 39.0-39.9, adult; Z79.01 Long term (current) use of anticoagulants; Z87.891 Personal history of nicotine dependence; Z88.0 Allergy status to penicillin; Z88.8 Allergy status to other drugs, medicaments and biological substances; Z88.1 Allergy status to other antibiotic agents; Z91.048 Other nonmedicinal substance allergy status; Z79.899 Other long term (current) drug therapy; V53.5XXA Driver of pick-up truck or van injured in collision with car, pick-up truck or van in traffic accident, initial encounter
CPT/HCPCS: 71101; 72125; 96374; 96375; 99285; A9270; J1170; J1885; J2405; 99284

== ENCOUNTER 2020-12-12 13:59 | Emergency (ER) | payer SELFPAY ==
[2020-12-12] MEDS ORDERED: Sodium Chloride 0.9% 10 ML Syringe FLUSH PRN (14:23)
[2020-12-12] MEDS ORDERED: Ondansetron 4 MG/2 ML SDV IVPUSH ONE (14:32)
--- NOTE | 2020-12-12 14:38 | EDM.PDOC ---
ED HPI GENERAL MEDICAL PROBLEM - General Chief Complaint: Gastrointestinal Problem Stated Complaint: RECTAL BLEEDING Time Seen by Provider: 12/12/20 14:19 Source of Information: Reports: Patient, RN Notes Reviewed History Limitations: Reports: No Limitations - History of Present Illness INITIAL COMMENTS - FREE TEXT/NARRATIVE: Patient is a 30-year-old female who presents to the ER for the evaluation of rectal bleeding. Patient states she has a history of endometriosis, PCOS, DVTs and saddle PE. She is on Eliquis. Primary care provider is Essie Canales. Patient states that for the last few days she is having some issues with rectal bleeding. She states initially it started with some bright red blood when she wiped. But it has progressed more into pink-tinged fluid, that is in the toilet when she finishes going to the bathroom. states that she normally has issues with diarrhea, but her stools have been a little bit more hard than normal. She has not had any fevers or chills, cough or shortness of breath, she is having some nausea but no vomiting or worsening diarrhea. Patient did not take anything for pain prior to coming to the ER. She did call her primary care provider, and she urged her to be evaluated in the ER, due to being on blood thinners. Patient is having some low abdominal pain as well, but she states it feels very similar to when she has flares of her endometriosis. Patient has had a hysterectomy. Patient tried to check for external hemorrhoids, and could not see any. She states it is not painful to have a bowel movement. Abdominal Pain Score (Numeric/FACES): 5 - Related Data Allergies Allergy/AdvReac Type Severity Reaction Status Date / Time adhesive Allergy Hives Verified 12/12/20 14:13 clarithromycin Allergy Hives Verified 12/12/20 14:13 haloperidol Allergy Difficulty Verified 12/12/20 14:13 Breathing Penicillins Allergy Airway Verified 12/12/20 14:13 Tightness talc Allergy Difficulty Verified 12/12/20 14:13 Breathing Home Meds: Home Meds FLUoxetine HCl [Prozac] 80 mg PO DAILY 03/19/18 [History] Rizatriptan Benzoate [Rizatriptan] 10 mg PO ASDIRECTED PRN 11/14/18 [History] Topiramate 25 mg PO DAILY 01/30/19 [History] buPROPion HCL [Wellbutrin Xl] 300 mg PO DAILY 01/30/19 [History] Pregabalin [Lyrica] 50 mg PO TID 05/04/19 [History] Past Medical History HEENT History: Reports: Hard of Hearing, Impaired Vision Other HEENT History: glasses. 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 Cardiovascular History: Reports: Blood Clots/VTE/DVT Other Cardiovascular History: DVT, saddle PE, right heart damage Respiratory History: Reports: PE Other Respiratory History: Saddle PE [employer] History: Reports: Endometriosis, Polycystic Ovaries Musculoskeletal History: Reports: Fibromyalgia Neurological History: Reports: Concussion, Migraines Other Neuro History: past concussion, frequent occipital ablations Psychiatric History: Reports: Anxiety, Depression Endocrine/Metabolic History: Reports: Obesity/BMI 30+ Hematologic History: Reports: Anticoagulation Therapy (on Eliquis for life), Other (See Below) Other Hematologic History: vitamin D deficient, has had treatment of D2 Dermatologic History: Reports: Other (See Below) Other Dermatologic History: reoccuring cysts to inner thighs and facial rash reoccurring - Infectious Disease History Infectious Disease History: Reports: Chicken Pox - Past Surgical History HEENT Surgical History: Reports: Oral Surgery Cardiovascular Surgical History: Reports: Other (See Below), Vascular Surgery Other Cardiovascular Surgeries/Procedures: IVC filter in groin taken out friday03/13/18 Musculoskeletal Surgical History: Reports: Other (See Below) Other Musculoskeletal Surgeries/Procedures:: foot surgery Social & Family History - Family History Family Medical History: No Pertinent Family History - Tobacco Use Tobacco Use Status *Q: Never Tobacco User - Caffeine Use Caffeine Use: Reports: Coffee, Soda - Living Situation & Occupation Living situation: Reports: , with Significant Other (Boyfriend + his son) Occupation: Employed ([employer]er at [employer]) ED ROS GENERAL - Review of Systems Review Of Systems: Comprehensive ROS is negative, except as noted in HPI. ED EXAM, GI/ABD - Physical Exam Exam: See Below Exam Limited By: No Limitations General Appearance: Alert, WD/WN, No Apparent Distress Respiratory/Chest: No Respiratory Distress, Lungs Clear, Normal Breath Sounds, No Accessory Muscle Use, Chest Non-Tender Cardiovascular: Normal Peripheral Pulses, Regular Rate, Rhythm, No Edema GI/Abdominal Exam: Normal Bowel Sounds, Soft, No Distention, No Mass, Tender (lower abdomen mainly) Extremities: Normal Inspection, Normal Capillary Refill Neurological: Alert, Oriented, Normal Cognition, No Motor/Sensory Deficits Psychiatric: Normal Affect, Normal Mood Skin Exam: Warm, Dry, Intact, Normal Color, No Rash Course - Vital Signs Last Recorded V/S: Last Vital Signs Temp 97.8 F 12/12/20 14:10 Pulse 92 12/12/20 14:10 Resp 18 12/12/20 14:10 BP 130/79 12/12/20 14:10 Pulse Ox 98 12/12/20 14:10 - Orders/Labs/Meds Orders: Active Orders 24 hr Category Date Time Status Peripheral IV Care [RC] . DIRECTED Care 12/12/20 14:23 Active PATIENT RETYPE [BBK] Routine Lab 12/12/20 15:44 Ordered HYDROmorphone [Dilaudid] Med 12/12/20 15:53 Once 0.5 mg IVPUSH ONETIME ONE Sodium Chloride 0.9% [Saline Flush] Med 12/12/20 14:23 Active 10 ml FLUSH ASDIRECTED PRN Peripheral IV Insertion Adult [OM.PC] Routine Oth 12/12/20 14:23 Ordered Medication Orders Sodium Chloride (Sodium Chloride 0.9% 10 Ml Syringe) 10 ml FLUSH ASDIRECTED PRN PRN Reason: Keep Vein Open Last Admin: 12/12/20 14:41 Dose: 10 ml Documented by: SANDRA Labs: Laboratory Tests 12/12/20 12/12/20 12/12/20 Range/Units 14:40 14:40 14:40 WBC 6.83 (3.98-10.04) K/mm3 RBC 4.52 (3.98-5.22) M/mm3 Hgb 14.0 (11.2-15.7) gm/dl Hct 42.4 (34.1-44.9) % MCV 93.8 (79.4-94.8) fl MCH 31.0 (25.6-32.2) pg MCHC 33.0 (32.2-35.5) g/dl RDW Std Deviation 43.0 (36.4-46.3) fL Plt Count 327 (182-369) K/mm3 MPV 10.5 (9.4-12.3) fl Neut % (Auto) 53.0 (34.0-71.1) % Lymph % (Auto) 36.7 (19.3-51.7) % [place] % (Auto) 8.2 (4.7-12.5) % Eos % (Auto) 1.6 (0.7-5.8) Baso % (Auto) 0.4 (0.1-1.2) % Neut # (Auto) 3.61 (1.56-6.13) K/mm3 Lymph # (Auto) 2.51 (1.18-3.74) K/mm3 [place] # (Auto) 0.56 H (0.24-0.36) K/mm3 Eos # (Auto) 0.11 (0.04-0.36) K/mm3 Baso # (Auto) 0.03 (0.01-0.08) K/mm3 PT 10.3 (9.7-12.0) SECONDS INR 0.93 APTT 27.4 (21.7-31.4) SECONDS Sodium 143 (136-145) mEq/L Potassium 4.1 (3.5-5.1) mEq/L Chloride 108 H (98-107) mEq/L Carbon Dioxide 28 (21-32) mEq/L Anion Gap 11.1 (5-15) BUN 6 L (7-18) mg/dL Creatinine 0.9 (0.55-1.02) mg/dL Est Cr Clr Drug Dosing TNP Estimated GFR (MDRD) > 60 (>60) mL/min BUN/Creatinine Ratio 6.7 L (14-18) Glucose 119 H (70-99) mg/dL Calcium 8.4 L (8.5-10.1) mg/dL Total Bilirubin 0.3 (0.2-1.0) mg/dL AST 9 L (15-37) U/L ALT 40 (14-59) U/L Alkaline Phosphatase 101 (46-116) U/L Total Protein 6.6 (6.4-8.2) g/dl Albumin 3.3 L (3.4-5.0) g/dl Globulin 3.3 gm/dL Albumin/Globulin Ratio 1.0 (1-2) Urine Color (Yellow) Urine Appearance (Clear) Urine pH (5.0-8.0) Ur Specific [place] (1.005-1.030) Urine Protein (Negative) Urine Glucose (UA) (Negative) Urine Ketones (Negative) Urine Occult Blood (Negative) Urine Nitrite (Negative) Urine Bilirubin (Negative) Urine Urobilinogen (0.2-1.0) Ur Leukocyte Esterase (Negative) Urine RBC (0-5) /hpf Urine WBC (0-5) /hpf Ur Squamous Epith Cells (0-5) /hpf Urine Bacteria (FEW) /hpf Urine Mucus (FEW) /hpf Blood Type Gel Antibody Screen 12/12/20 12/12/20 Range/Units 14:40 14:50 WBC (3.98-10.04) K/mm3 RBC (3.98-5.22) M/mm3 Hgb (11.2-15.7) gm/dl Hct (34.1-44.9) % MCV (79.4-94.8) fl MCH (25.6-32.2) pg MCHC (32.2-35.5) g/dl RDW Std Deviation (36.4-46.3) fL Plt Count (182-369) K/mm3 MPV (9.4-12.3) fl Neut % (Auto) (34.0-71.1) % Lymph % (Auto) (19.3-51.7) % [place] % (Auto) (4.7-12.5) % Eos % (Auto) (0.7-5.8) Baso % (Auto) (0.1-1.2) % Neut # (Auto) (1.56-6.13) K/mm3 Lymph # (Auto) (1.18-3.74) K/mm3 [place] # (Auto) (0.24-0.36) K/mm3 Eos # (Auto) (0.04-0.36) K/mm3 Baso # (Auto) (0.01-0.08) K/mm3 PT (9.7-12.0) SECONDS INR APTT (21.7-31.4) SECONDS Sodium (136-145) mEq/L Potassium (3.5-5.1) mEq/L Chloride (98-107) mEq/L Carbon Dioxide (21-32) mEq/L Anion Gap (5-15) BUN (7-18) mg/dL Creatinine (0.55-1.02) mg/dL Est Cr Clr Drug Dosing Estimated GFR (MDRD) (>60) mL/min BUN/Creatinine Ratio (14-18) Glucose (70-99) mg/dL Calcium (8.5-10.1) mg/dL Total Bilirubin (0.2-1.0) mg/dL AST (15-37) U/L ALT (14-59) U/L Alkaline Phosphatase (46-116) U/L Total Protein (6.4-8.2) g/dl Albumin (3.4-5.0) g/dl Globulin gm/dL Albumin/Globulin Ratio (1-2) Urine Color Yellow (Yellow) Urine Appearance Clear (Clear) Urine pH 8.5 H (5.0-8.0) Ur Specific [place] 1.020 (1.005-1.030) Urine Protein Negative (Negative) Urine Glucose (UA) Negative (Negative) Urine Ketones Negative (Negative) Urine Occult Blood Negative (Negative) Urine Nitrite Negative (Negative) Urine Bilirubin Negative (Negative) Urine Urobilinogen 0.2 (0.2-1.0) Ur Leukocyte Esterase Negative (Negative) Urine RBC 0-5 (0-5) /hpf Urine WBC 0-5 (0-5) /hpf Ur Squamous Epith Cells 0-5 (0-5) /hpf Urine Bacteria Few (FEW) /hpf Urine Mucus Few (FEW) /hpf Blood Type A POSITIVE Gel Antibody Screen Negative Meds: Medications Generic Name Dose Route Start Last Admin Trade Name Maria D PRN Reason Stop Dose Admin Sodium Chloride 10 ml 12/12/20 14:23 12/12/20 14:41 Sodium Chloride 0.9% 10 Ml Syringe FLUSH 10 ml ASDIRECTED PRN Administration Keep Vein Open Discontinued Medications Generic Name Dose Route Start Last Admin Trade Name Frevel PRN Reason Stop Dose Admin Ondansetron HCl 4 mg 12/12/20 14:32 12/12/20 14:55 Ondansetron 4 Mg/2 Ml Sdv IVPUSH 12/12/20 14:33 4 mg ONETIME ONE Administration - Re-Assessments/Exams Free Text/Narrative Re-Assessment/Exam: 12/12/20 14:38 Patient presents to the ER for her rectal bleeding. We will go ahead and check some basic labs initially, give her some IV Zofran for nausea management. P atient would like to hold off on pain medications at this time. Likely this is hemorrhoids causing some issues, but the patient be on Eliquis seems to have exacerbated some of the bleeding. 12/12/20 15:45 Patient's labs are unremarkable, hemoglobin is within normal limits. As far as imaging is concerned today, I do not believe would be very helpful. We will have her continue all other medications, but try some [id number] hemorrhoid management to see if this helps relieve some of the bleeding. Departure - Departure Time of Disposition: 15:54 Disposition: Home, Self-Care 01 Condition: Good Clinical Impression: Rectal bleeding - Discharge Information *PRESCRIPTION DRUG MONITORING PROGRAM REVIEWED*: No *COPY OF PRESCRIPTION DRUG MONITORING REPORT IN PATIENT CALEB: No Instructions: Rectal Bleeding, [id number] Referrals: Anahi Canales PA-C [Primary Care Provider] - Forms: ED Department Discharge Additional Instructions: You were seen in the ER today for your rectal bleeding. Although no specific etiology was established it is thought likely due to internal hemorrhoids. Laboratory evaluation demonstrated no acute abnormalities. Your hemoglobin was within normal limits. Your blood type is A+. Please continue all other medications as previously prescribed by your regular doctor. You can try [id number] hemorrhoid suppositories to see if this helps relieve some of the issue. Please give this a good 48 to 72 hours to start taking effect. Please monitor your stools however, if the bleeding should increase so much that you are having the entire toilet bowl filled with blood, or if you start feeling increasingly dizzy or lightheaded, from sitting to standing, please do not hesitate to return to the ER for further management. Otherwise you may follow-up with your regular provider, for ER follow-up, to continue talks about being scoped for ongoing issues. Do not hesitate to return to the ER at any time if symptoms change or worsen. Sepsis Event Note (ED) - Evaluation Sepsis Screening Result: No Definite Risk - Focused Exam Vital Signs: Vital Signs Temp Pulse Resp BP Pulse Ox 12/12/20 14:10 97.8 F 92 18 130/79 98 - My Orders Last 24 Hours: My Active Orders 12/12/20 14:23 Peripheral IV Care [RC] . DIRECTED Sodium Chloride 0.9% [Saline Flush] 10 ml FLUSH ASDIRECTED PRN Peripheral IV Insertion Adult [OM.PC] Routine 12/12/20 15:44 PATIENT RETYPE [BBK] Routine 12/12/20 15:53 HYDROmorphone [Dilaudid] 0.5 mg IVPUSH ONETIME ONE - Assessment/Plan Last 24 Hours: My Active Orders 12/12/20 14:23 Peripheral IV Care [RC] . DIRECTED Sodium Chloride 0.9% [Saline Flush] 10 ml FLUSH ASDIRECTED PRN Peripheral IV Insertion Adult [OM.PC] Routine 12/12/20 15:44 PATIENT RETYPE [BBK] Routine 12/12/20 15:53 HYDROmorphone [Dilaudid] 0.5 mg IVPUSH ONETIME ONE
[2020-12-12] MEDS ORDERED: HYDROmorphone 0.5 MG/0.5 ML Syringe IVPUSH ONE (15:53)
== END 2020-12-12 16:10 | disposition home or self-care (01) ==
LOC: JD.ED 13:59
DX: K62.5 Hemorrhage of anus and rectum (principal); E66.9 Obesity, unspecified; Z88.0 Allergy status to penicillin; Z88.1 Allergy status to other antibiotic agents; Z91.048 Other nonmedicinal substance allergy status; Z88.5 Allergy status to narcotic agent; Z91.09 Other allergy status, other than to drugs and biological substances; Z86.718 Personal history of other venous thrombosis and embolism; Z68.30 Body mass index [BMI] 30.0-30.9, adult
CPT/HCPCS: 36415; 80053; 81001; 85025; 85610; 85730; 86850; 86900; 86901; 96374; 96375; 99283; J1170; J2405

== ENCOUNTER 2021-01-23 11:50 | Day surgery (SDC) | payer SELFPAY ==
[~2021-01-23 11:50] MED LIST: FLU Vacc QS2021-22 36MOS UP/PF 60 MCG/0.5 ML Syringe IM ONE; Lactated Ringers 1,000 ML IV SCH; Lidocaine 1%/Sod Bicarbonate in NS 8.4% 1 ML Syringe IDERM PRN; Sodium Chloride 0.9% 10 ML Syringe FLUSH PRN
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
[2021-01-23] MEDS ORDERED: Midazolam 1 MG/ML 2 ML SDV IVPUSH ONE (13:28)
[2021-01-23] MEDS ORDERED: Midazolam 1 MG/ML 2 ML SDV ONE (13:45)
[2021-01-23] MEDS ORDERED: Propofol 200 MG/20 ML SDV ONE ×5 (13:45→15:01)
[2021-01-23] MEDS ORDERED: fentaNYL 100 MCG/2 ML SDV ONE (13:45)
[2021-01-23] MEDS ORDERED: Lidocaine 1% 4 ML ONE (13:45)
--- NOTE | 2021-01-23 15:19 | PCM.PRNOTE ---
- Free Text/Narrative Note: Date: 01/23/2021 Procedure: diagnostic esophagogastroduodenoscopy and colonoscopy Indication: chronic abdominal pain, bloating, rectal bleeding Endoscopist: Gil Rodriguez MD Findings: small sliding hiatal hernia. Poor bowel prep. No evidence of GI bleed. No polyps. Minor internal hemorrhoidal disease. Detailed Report: The patient was taken to the endoscopy suite and placed in left lateral decubitus position. Timeout was performed and monitored anesthesia care was initiated. A bite-block was placed. The endoscope was inserted into the mouth and advanced to the duodenum with ease. Duodenal mucosa appeared grossly normal. A biopsy of mucosa from the duodenal bulb was obtained with cold forceps. The scope was withdrawn into the stomach. Aside from a small sliding hiatal hernia, gastric mucosa appeared normal. A sample biopsy was obtained from the antrum. The GE junction appeared mildly inflamed. A biopsy from the GE junction and from distal esophageal mucosa were obtained with cold forceps. Air was suctioned from the stomach as the scope was withdrawn. The remainder of the esophagus appeared normal. Next, attention was turned to colonoscopy. The anus appeared normal and digital rectal exam was unremarkable. The colonoscope was inserted and advanced all the way to the cecum. This was very challenging due to patient body habitus and redundancy of the colon. The bowel prep was quite poor. The appendiceal orifice was visualized. The scope was withdrawn and mucosal surfaces were inspected as best as possible. There was no evidence of hemorrhage or large, worrisome lesions. No diverticulosis was noted. On retroflexion in the rectum, minor internal hemorrhoidal disease was appreciated. Air was suctioned from the distal colon and rectum prior to withdrawal of the scope. The patient tolerated the procedure well.
--- NOTE | 2021-01-23 15:26 | PCM48HPAN ---
Post Anesthesia Note - EVALUATION WITHIN 48HRS OF ANESTHETIC Vital Signs in Normal Range: Yes Patient Participated in Evaluation: Yes Respiratory Function Stable: Yes Airway Patent: Yes Cardiovascular Function Stable: Yes Hydration Status Stable: Yes Pain Control Satisfactory: Yes Nausea and Vomiting Control Satisfactory: Yes Mental Status Recovered: Yes Vital Signs: Last Vital Signs Temp 99.1 F 01/23/21 12:00 Pulse 103 H 01/23/21 12:00 Resp 18 01/23/21 12:00 BP 148/98 H 01/23/21 12:00 Pulse Ox 96 01/23/21 12:00 1520 95% 84 16 98.7 133/61 - COMMENTS/OBSERVATIONS Free Text/Narrative:: wants to use restroom- very vague- reinforced that she is too sleepy to get out of bed right now. complains of nausea.
[2021-01-23] MEDS ORDERED: Simethicone 80 MG Tab.Chew PO ONE (16:00)
== END 2021-01-23 16:37 | disposition home or self-care (01) ==
LOC: JD.SDS 11:50
PROVIDERS: ATTEND Surgery
DX: K62.5 Hemorrhage of anus and rectum (principal); K29.50 Unspecified chronic gastritis without bleeding; K64.8 Other hemorrhoids; R14.0 Abdominal distension (gaseous); K44.9 Diaphragmatic hernia without obstruction or gangrene; G89.29 Other chronic pain
CPT/HCPCS: 43239; 45380; A9270; J2250; J2704; J3010; J7120; 00813

== ENCOUNTER 2021-02-23 11:23 | Emergency (ER) | payer SELFPAY ==
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
[2021-02-23] MEDS ORDERED: Ketorolac 30 MG/ML SDV IM ONE (12:23)
[2021-02-23] MEDS ORDERED: diphenhydrAMINE 50 MG/ML SDV IM ONE (12:23)
[2021-02-23] MEDS ORDERED: Metoclopramide 10 MG/2 ML SDV IM ONE (12:23)
--- NOTE | 2021-02-23 13:16 | CT ---
Head CT Technique: Multiple axial sections through the brain were obtained. Intravenous contrast was not utilized. Reconstructed coronal and sagittal images were also obtained. Comparison: Prior head CT study of 03/19/18. Findings: Ventricles along with basal cisterns and sulci over the convexities appear within normal limits for the patient's age. No abnormal parenchymal densities are seen. No evidence of intracranial hemorrhage is seen. No midline shift or mass-effect is seen. Bone window settings were reviewed. Visualized mastoid sinuses and paranasal sinuses show nothing acute. No acute calvarial abnormality is seen. Impression: 1. Nothing acute is seen on noncontrast head CT study. 2. No change is seen from prior head CT exam. 3. If clinical symptoms warrant it, brain MRI could be considered. Diagnostic code #1
== END 2021-02-23 13:50 | disposition home or self-care (01) ==
LOC: JD.ED 11:23
DX: R20.0 Anesthesia of skin (principal); R20.2 Paresthesia of skin; E66.9 Obesity, unspecified; Z68.41 Body mass index [BMI] 40.0-44.9, adult; Z91.048 Other nonmedicinal substance allergy status; Z88.1 Allergy status to other antibiotic agents; Z88.5 Allergy status to narcotic agent; Z88.0 Allergy status to penicillin; Z79.01 Long term (current) use of anticoagulants; Z87.891 Personal history of nicotine dependence
CPT/HCPCS: 36415; 70450; 70450-26; 80053; 85025; 93005; 99284-25

== ENCOUNTER 2021-12-14 11:13 | Emergency (ER) | payer SELFPAY ==
[2021-12-14] MEDS ORDERED: Sodium Chloride 0.9% 10 ML Syringe FLUSH PRN ×2 (11:32→12:44)
[2021-12-14] MEDS ORDERED: Ketorolac 30 MG/ML SDV IVPUSH ONE (11:41)
[2021-12-14] MEDS ORDERED: Ondansetron 4 MG/2 ML SDV IVPUSH ONE (11:41)
[2021-12-14] MEDS ORDERED: Sodium Chloride 0.9% 1,000 ML IV ONE (12:25)
[2021-12-14] MEDS ORDERED: Iopamidol 755 Mg/ML 100 ML Bottle IVPUSH ONE (12:44)
[2021-12-14] MEDS ORDERED: Sodium Chloride 0.9% 100 ML IV SCH (12:45)
[2021-12-14] MEDS ORDERED: HYDROmorphone 0.5 MG/0.5 ML Syringe IVPUSH ONE (12:46)
== END 2021-12-14 14:28 | disposition home or self-care (01) ==
LOC: JD.ED 11:13
DX: R07.89 Other chest pain (principal); E66.9 Obesity, unspecified; Z68.39 Body mass index [BMI] 39.0-39.9, adult; Z91.048 Other nonmedicinal substance allergy status; Z88.1 Allergy status to other antibiotic agents; Z88.0 Allergy status to penicillin; Z88.8 Allergy status to other drugs, medicaments and biological substances; Z79.899 Other long term (current) drug therapy; Z79.01 Long term (current) use of anticoagulants; Z86.16 Personal history of COVID-19; Z87.891 Personal history of nicotine dependence
CPT/HCPCS: 36415; 71045; 71275; 74018; 80053; 83690; 84484; 85025; 85379; 86140; 93005; 96361; 96374; 96375; 99284; J1170; J1885; J2405; J3490; J7030; Q9967; 93010

== ENCOUNTER 2022-06-20 14:08 | Emergency (ER) | payer SELFPAY ==
[2022-06-20] MEDS ORDERED: Sodium Chloride 0.9% 1,000 ML IV ONE (14:55)
[2022-06-20] MEDS ORDERED: HYDROmorphone 0.5 MG/0.5 ML Syringe IVPUSH ONE ×2 (14:55→16:36)
[2022-06-20] MEDS ORDERED: Metoclopramide 10 MG/2 ML SDV IVPUSH ONE (14:55)
[2022-06-20] MEDS ORDERED: diphenhydrAMINE 50 MG/ML SDV IVPUSH ONE (14:55)
[2022-06-20 16:20] LABS: ESTIMATED GFR 68 mL/min (>60)
[2022-06-20] MEDS ORDERED: Ketorolac 30 MG/ML SDV IVPUSH ONE (16:36)
[2022-06-20 17:58] LABS: CORONAVIRUS COVID-19 NAA NEGATIVE (NEGATIVE)
[2022-06-20] MEDS ORDERED: Nitrofurantoin Monohydrate/Macrocrystalline 100 MG Cap PO ONE (18:04)
== END 2022-06-20 18:29 | disposition home or self-care (01) ==
LOC: JD.ED 14:08
DX: N30.90 Cystitis, unspecified without hematuria (principal); E66.9 Obesity, unspecified; Z68.41 Body mass index [BMI] 40.0-44.9, adult; Z91.048 Other nonmedicinal substance allergy status; Z88.1 Allergy status to other antibiotic agents; Z88.0 Allergy status to penicillin; Z88.8 Allergy status to other drugs, medicaments and biological substances; Z79.01 Long term (current) use of anticoagulants; Z79.899 Other long term (current) drug therapy
CPT/HCPCS: 0241U; 36415; 70450; 71045; 80053; 81001; 83605; 83735; 83880; 84484; 84702; 85025; 85379; 85610; 85730; 86140; 87086; 87651; 93005; 96361; 96374; 96375; 96376; 99284; A9270; J1170; J1200; J1885; J2765; J7030; 93010

== ENCOUNTER 2022-07-13 10:40 | Inpatient (IN) | payer SELFPAY ==
[2022-07-13] MEDS ORDERED: Albuterol/Ipratropium 3.0-0.5 MG/3 ML Neb Soln NEB ONE ×2 (11:46→13:30)
[2022-07-13] MEDS: Sodium Chloride 0.9% 10 ML Syringe FLUSH PRN ×2 (11:50→16:44)
[2022-07-13] MEDS ORDERED: Ibuprofen 600 MG Tab PO ONE (12:26)
[2022-07-13 13:06] LABS: ESTIMATED GFR 77 mL/min (>60)
[2022-07-13 13:07] LABS: CORONAVIRUS COVID-19 NAA NEGATIVE (NEGATIVE)
[2022-07-13] MEDS ORDERED: Gabapentin 600 MG Tab PO ONE (15:33)
[2022-07-13] MEDS ORDERED: Iopamidol 755 Mg/ML 100 ML Bottle IVPUSH ONE (16:03)
[2022-07-13] MEDS ORDERED: Sodium Chloride 0.9% 100 ML IV SCH (16:15)
[2022-07-13] MEDS ORDERED: methylPREDNISolone Sodium Succinate 40 MG/1 ML SDV IVPUSH ONE (17:02)
[2022-07-13] MEDS ORDERED: Azithromycin 500 MG in Sodium Chloride 0.9% 250 ML IV ONE (17:09)
[2022-07-13] MEDS ORDERED: cefTRIAXone 2 GM in Sodium Chloride 0.9% 100 ML IV ONE (17:10)
[2022-07-13] MEDS ORDERED: Ondansetron 4 MG/2 ML SDV IVPUSH ONE (18:23)
[2022-07-13] MEDS ORDERED: HYDROmorphone 0.5 MG/0.5 ML Syringe IVPUSH PRN (19:19)
[2022-07-13] MEDS ORDERED: Albuterol/Ipratropium 3.0-0.5 MG/3 ML Neb Soln NEB PRN (19:19)
[2022-07-13] MEDS ORDERED: Acetaminophen/oxyCODONE 325-5 MG Tab PO PRN (19:19)
[2022-07-13] MEDS ORDERED: Docusate Sodium 100 MG Cap PO PRN (19:19)
[2022-07-13] MEDS ORDERED: hydrALAZINE 20 MG/ML SDV IVPUSH PRN (19:19)
[2022-07-13] MEDS ORDERED: Psyllium Husk Powder Sugar Free 5.85 GM Packet PO PRN (19:19)
[2022-07-13] MEDS ORDERED: traZODone 50 MG Tab PO PRN (19:42)
[2022-07-13] MEDS ORDERED: RIZATRIPTAN 10 MG PO PRN (19:42)
[2022-07-13] MEDS ORDERED: Lactulose Soln 10 GM/15 ML 30 ML UD Cup PO PRN (19:42)
[2022-07-13] MEDS ORDERED: Cyclobenzaprine 10 MG Tab PO PRN (19:42)
[2022-07-13] MEDS: Heparin Sodium 5,000 Units/ML Vial SUBCUT SCH (21:59)
[2022-07-13] MEDS: Acetaminophen 325 MG Tab PO PRN (21:59)
[2022-07-13] MEDS: buPROPion 100 MG Tab.SR PO SCH (22:00)
[2022-07-13] MEDS: Albuterol/Ipratropium 3.0-0.5 MG/3 ML Neb Soln NEB SCH (22:07)
[2022-07-14] MEDS: Albuterol/Ipratropium 3.0-0.5 MG/3 ML Neb Soln NEB SCH ×4 (03:31→20:52)
[2022-07-14] MEDS: Heparin Sodium 5,000 Units/ML Vial SUBCUT SCH (03:43)
[2022-07-14] MEDS: Acetaminophen 325 MG Tab PO PRN ×3 (05:16→23:17)
[2022-07-14] MEDS ORDERED: Heparin Sodium 5,000 Units/ML Vial SUBCUT SCH (06:00)
[2022-07-14 08:42] LABS: BORDETELLA PARAPERT IS1001 Not Detected (Not Detected)
[2022-07-14] MEDS: buPROPion 100 MG Tab.SR PO SCH ×2 (09:14→23:02)
[2022-07-14] MEDS: Propranolol 60 MG Cap.ER PO SCH (09:15)
[2022-07-14] MEDS: cefTRIAXone 1 GM in Sodium Chloride 0.9% 100 ML IV SCH (09:15)
[2022-07-14] MEDS: FLUoxetine 20 MG Cap PO SCH (09:15)
[2022-07-14] MEDS: methylPREDNISolone Sodium Succinate 40 MG/1 ML SDV IVPUSH SCH ×2 (09:20→23:03)
[2022-07-14] MEDS: Ondansetron 4 MG/2 ML SDV IVPUSH PRN (09:27)
[2022-07-14] MEDS: Azithromycin 500 MG in Sodium Chloride 0.9% 250 ML IV SCH (10:17)
[2022-07-14] MEDS: Gabapentin 600 MG Tab PO SCH ×3 (10:22→23:03)
[2022-07-14] MEDS: Acetaminophen/oxyCODONE 325-5 MG Tab PO PRN ×2 (17:54→23:06)
[2022-07-14] MEDS: Apixaban 2.5 MG Tab PO SCH (23:03)
[2022-07-15] MEDS: Albuterol/Ipratropium 3.0-0.5 MG/3 ML Neb Soln NEB SCH (02:54)
[2022-07-15] MEDS: Acetaminophen/oxyCODONE 325-5 MG Tab PO PRN ×5 (03:10→21:57)
[2022-07-15] MEDS: Acetaminophen 325 MG Tab PO PRN ×2 (03:11→16:48)
[2022-07-15] MEDS: Ondansetron 4 MG/2 ML SDV IVPUSH PRN (08:55)
[2022-07-15] MEDS: methylPREDNISolone Sodium Succinate 40 MG/1 ML SDV IVPUSH SCH ×2 (08:59→13:23)
[2022-07-15] MEDS: cefTRIAXone 1 GM in Sodium Chloride 0.9% 100 ML IV SCH (08:59)
[2022-07-15] MEDS: Apixaban 2.5 MG Tab PO SCH ×2 (09:04→20:44)
[2022-07-15] MEDS: buPROPion 100 MG Tab.SR PO SCH ×2 (09:05→20:44)
[2022-07-15] MEDS: Propranolol 60 MG Cap.ER PO SCH (09:05)
[2022-07-15] MEDS: Gabapentin 600 MG Tab PO SCH ×3 (09:05→20:44)
[2022-07-15] MEDS: FLUoxetine 20 MG Cap PO SCH (09:05)
[2022-07-15] MEDS: Azithromycin 500 MG in Sodium Chloride 0.9% 250 ML IV SCH (09:41)
[2022-07-16] MEDS: Acetaminophen/oxyCODONE 325-5 MG Tab PO PRN ×3 (04:19→13:27)
[2022-07-16] MEDS: Gabapentin 600 MG Tab PO SCH (08:48)
[2022-07-16] MEDS: FLUoxetine 20 MG Cap PO SCH (08:48)
[2022-07-16] MEDS: Propranolol 60 MG Cap.ER PO SCH (08:49)
[2022-07-16] MEDS: buPROPion 100 MG Tab.SR PO SCH (08:49)
[2022-07-16] MEDS: Apixaban 2.5 MG Tab PO SCH (08:50)
[2022-07-16] MEDS: cefTRIAXone 1 GM in Sodium Chloride 0.9% 100 ML IV SCH (08:50)
[2022-07-16] MEDS: Ondansetron 4 MG/2 ML SDV IVPUSH PRN (08:55)
[2022-07-16] MEDS: Azithromycin 500 MG in Sodium Chloride 0.9% 250 ML IV SCH (09:30)
[2022-07-16] MEDS: methylPREDNISolone Sodium Succinate 40 MG/1 ML SDV IVPUSH SCH (09:34)
[2022-07-16] MEDS: Acetaminophen 325 MG Tab PO PRN (09:40)
== END 2022-07-16 13:50 | disposition home or self-care (01) | DRG 917 ==
LOC: JD.ED 10:40 → JD.MS 18:02
PROVIDERS: ADMIT Internal Medicine; ATTEND Internal Medicine
PROC: 5A12012 Performance of Cardiac Output, Single, Manual (ICD-10-PCS; principal; 2022-07-13)
DX: T40.601A Poisoning by unspecified narcotics, accidental (unintentional), initial encounter (principal); G92.9 Unspecified toxic encephalopathy; J18.9 Pneumonia, unspecified organism; J96.01 Acute respiratory failure with hypoxia; J45.901 Unspecified asthma with (acute) exacerbation; K21.9 Gastro-esophageal reflux disease without esophagitis; M79.7 Fibromyalgia; F41.9 Anxiety disorder, unspecified; G89.29 Other chronic pain; M54.9 Dorsalgia, unspecified; F32.A Depression, unspecified; E66.01 Morbid (severe) obesity due to excess calories; Z20.822 Contact with and (suspected) exposure to COVID-19; Z88.0 Allergy status to penicillin; Z86.711 Personal history of pulmonary embolism; Z88.8 Allergy status to other drugs, medicaments and biological substances; Z86.718 Personal history of other venous thrombosis and embolism; Z90.710 Acquired absence of both cervix and uterus; Z88.1 Allergy status to other antibiotic agents; Z98.890 Other specified postprocedural states; Z87.891 Personal history of nicotine dependence
CPT/HCPCS: 0241U; 36415; 71045; 71045-26; 71275; 71275-26; 80048; 80053; 80306; 81001; 83520; 85025; 85652; 86140; 86256; 87040; 87486; 87581; 87633; 87798; 93005; 93010; 94640; 94761; 94762; 96365; 96367; 96375; 99285; 99285-25; A9270-GY; J0456; J0696; J1644; J2405; J2920; J3490; J7050; J7620-GY; Q9967